=== PATIENT | female | born 1970 | race Caucasian/White ===

== ENCOUNTER 2024-10-29 00:56 | Day surgery (SDC) | payer OTHER, SELFPAY ==
[2024-10-21 11:50] VITALS: BMI 26.5
--- NOTE | 2024-10-21 12:05 | PC.NURSE ---
Report to the Outpatient Waiting Room, entrance under the green pavilion located off [facility], at time _0945_ on date _53-17-2227_. Planned Procedure Time: _1145_.? Time changes happen often and if your time is changed the preop area will call you the afternoon before. - You and your visitor will be asked to self-screen and do not enter if you have any COVID symptoms. Please call surgeon if you need to reschedule. - A mask is optional within the hospital at this time. Patients may have clear liquids (water, carbonated beverages, clear teas, apple juice) until 345am with a maximum of 20 ounces. Nothing to drink after 345am. - No food from midnight until time of surgery and no smoking, or chewing tobacco (or any form of nicotine). No chewing gum, candy or mints. Take only the following medications with a SIP of water on the morning of surgery: __Amlodipine and Gabapentin___ DO NOT STOP ANY OF YOUR OTHER PRESCRIPTION MEDICATIONS PRIOR TO SURGERY EXCEPT THE FOLLOWING Hold all vitamins and supplements for 3 days per anesthesiologist. Medications to discontinue per physician Date to take last dose Please no make-up, nail japanese, hairspray, perfume, deodorant, or body powder the day of surgery.? No jewelry (including any body piercings) or valuables the day of surgery, leave them at home.? Please take a shower or bath the night before, or the morning of, surgery with an antibacterial soap.? Wear comfortable, loose fitting clothing.? - Jewelry must be removed prior to entering the operating room.? Rings and piercings that are not removed may be cut off. - The hospital will not accept responsibility for valuables.? - Please leave all valuables, including medications, at home the day of surgery. If you are going home after surgery, a licensed dump truck driver must drive you home.? - NO public transportation without another adult if you receive anesthesia. - We recommend that an adult stay with you for 24 hours following discharge. - We also recommend that you do not drive, make important decision, drink alcoholic beverages, or take any drugs that were not prescribed by your health care provider for at least 24 hours after your discharge time. Follow any additional instructions given to you from your surgeon. Telephone instructions given to __Tracey___and asked if any additional questions and then verbalized understanding. Patient advised to call surgeon office or pre surgery nurse liaison [phone] if any additional questions.
--- OUTSIDE RECORDS SUMMARY | 2024-10-27 14:56 | XMS_ITS | Encounter Summary ---
Author Organization [facility] Healthcare Address [address] [place] [address] Care Team Providers Care Mechanical Maintenance Technician Name Role Phone Dipika Prakash MD Unavailable Merly Oro MD Primary Care Provide r Philippe Lee MD Unavailable Vanesa Forman MD Unavailable Indra Acosta MD Unavailable [phone] Reason for Referral * Diagnostic Imaging (Routine) - Authorized Specialty Diagnoses / Procedures Referred By Contac t Referred To Contact Diagnoses Spondylosis of lumbar region without myelopathy or radiculopathy Procedures Imaging Lumbar/Sacral Facet Medial Branch Block Bilateral (48695) Vance Yee NP [id number] [place] [address] [address] [place] [address] Phone: tel: fax: [facility] [address] [place] [address] Phone: tel: fax: Referral ID Status Reason Start Date Expiration Date V isits Requested Visits Authorized [id number] Authorized 10/27/2024 11/26/2025 1 1 Reason for Visit * Reason Comments Follow-up Patient is here for follow up after MBB #1 which offered 80% relief. 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 Encounter Details Date Type Department Care Team (Latest Contact Info) Description 10/27/2024 2:56 PM CDT - 10/27/2024 11:59 PM CDT Hospital Encounter [facility] [address] [place] [address] Vance Yee DRUM BARKER OPERATOR [address] [place] [address] Degeneration of intervertebral disc of lumbar region with discogenic back pain (Primary Dx); Spondylosis of lumbar region without myelopathy or radiculopathy; Rheumatoid arthritis, involving unspecified site, unspecified whether rheumatoid factor present (HCC) Discharge Disposition: Discharge to home or self care Social History Tobacco Use Types Packs/Day Years Used Date Smoking Tobacco: Never Passive Smoke Exposure: Never Smokeless Tobacco: Never Alcohol Use Standard Drinks/Week Comments No 0 (1 standard drink = 0.6 oz pur e alcohol) AUDIT-C Answer Date Recorded Q1: How often do you have a drink containing alc ohol? Never 05/03/2023 Average Number of Drinks Not on file 024 Frequency of Binge Drinking Not on file 04/12 PHQ-2 Answer Date Recorded PHQ-2 Total Score (If total score is 3 or more points, staff should administer the PHQ-9) 0 10/15/2024 Personal Safety Answer Date Recorded Have you ever been in or are you currently in a harmful physical or emotional relationship or is someone making you feel afraid or unsafe? 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 file Not on file Not on file documented as of this encounter Last Filed Vital Signs Vital Sign Reading Time Taken Comments Blood Pressure 149/86 10/27/2024 3:02 PM CDT Pulse 77 10/27/2024 3:02 PM CDT Temperature - - Respiratory Rate 16 10/27/2024 3:02 PM CDT Oxygen Saturation 100% 10/27/2024 3:02 PM CDT Inhaled Oxygen Concentration - - Weight - - Height - - Body Mass Index - - documented in this encounter Discharge Instructions * Discharge Instructions* Wanda Hernandez RN - 10/27/2024 4:03 PM CDT General information about procedures 1- If you are diabetic, check your blood sugar prior to your appointment. If it is 250 or > yourinjection will need to be rescheduled. 2- If you are on an antibiotic, the injection cannot be performed and will need to be rescheduled. 3- If you are on a blood thinner, we will need to send a letter to the prescriber in order to get permission to stop the medication. (This applies to most injections, not all, please check with your nurse) 4- Some injections require a otr van cdl truck driver, please check with your nurse. Insurance information for scheduled procedures: The insurance referral department will get any necessary authorizations for your upcoming procedure. They will not contact you unless it is DENIED. If the insurance approves the procedure or No AUTH is required that is not a guarantee of payment and it is subject to medical necessity. It is your responsibility to contact your insurance and check your benefits. If you have any questions, please feel free to contact the office.Diagnostic Medial Branch Block Pre-Procedure A diagnostic medial branch block is a test to find the cause of your neck and back pain. During thetest, your doctor will inject a numbing medication around the nerve that supplies your facet joints. These are the joints in your spine that allow you to bend and twist your neck and back. You should start to notice pain relief over the next 15 minutes or so. This will likely only last for the next few hours. It is DIAGNOSTIC and important for us to know. The procedure takes 3-5 minutes to perform. Insurance requires this block to be performed twice, if you get good relief then we can move forward with the ablation (that would hopefully result in longer lasting relief). To get an approval by insurance for the procedures, you must have a follow up appointment in between proceduresto document relief. If you are going to physical therapy continue to do so, you have no restrictions on your activity. Let us know: If you take a blood thinner (some of these procedures require you to stop it), if you are sick, on antibiotics or running a fever. documented in this encounter Medications at Time of Discharge ascorbic acid (VITAMIN C) 500 mg tablet,chewable Take one tablet twice daily 60 tablet/chew tab 01/15/2019 calcium carbonate-vitami n D3 (CALCIUM 500 + D) 500 mg(1,250mg) -400 unit tablet OTC 30 0 04/02/2016 estradiol-noreth indrone (Mimvey) 1-0.5 mg per tabletIndication s:Menopausal symptoms Take 1 tablet by mouth daily 84 tablet 4 10/18/2023 golimumab (SIMPONI ARIA) 12.5 mg/mL solutionIndicati ons:Rheumatoid Arthritis Infuse 2 mg/kg into a venous catheter multivitamin capsule take 1 capsule by oral route every day 0 03/26/2014 potassium chloride ER 20 mEq CR tablet Take 1 tablet (20 mEq total) by mouth 2 (two) times a day 180 tablet 1 10/15/2024 sertraline (ZOLOFT) 50 mg tablet Take 2 tablets (100 mg total) by mouth daily 12/30/2020 gabapentin (NEURONTIN) 300 mg capsuleIndicatio ns:Fibromyalgia Take 1 tab p.o. daily x3 days. Then take 1 tab p.o. b.i.d. daily x3 days. Finally take 1 tab p.o. t.i.d. thereafter 90 capsule 1 09/02/2024 5 documented as of this encounter Discharge Disposition Disposition Code Departure Means Destination Discharge to home or self care documented in this encounter Progress Notes * Vance Yee NP - 10/27/2024 3:00 PM CDT Patient Name: Xiomara Rojas : 1970 Today's Date: 10/28/2024 PCP: Merly Oro MD Referring: Philippe Lee* Chief Complaint Patient presents with Follow-up Patient is here for follow up after MBB #1 which offered 80% relief. 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 HPI Patient returned complaints of ongoing chronic lower back pain. Pain described as achy and sharp which is exacerbated with simple activities of daily living such as housework. Currently rating pain 6on 10 scale. Pain is primarily axial. Denying motor weakness into lower extremities. does endorse lower extremity achiness bilaterally. Recent bilateral medial branch block diagnostic injection series 1 provided patient with [id number] improvement with her symptomatology during the life with the anesthetic. Improved mobility was noted as well. She continues with the gabapentin t.i.d. with some benefit. Denies side effects. Inquires about increasing dose to improve effectiveness. Allergies Allergen Reactions Erythromycin Nausea & Vomiting Past Medical History: Diagnosis Date Anxiety Headache Hypertension 2015 Insomnia PONV (postoperative nausea and vomiting) RA (rheumatoid arthritis) Past Surgical History: Procedure Laterality Date CHOLECYSTECTOMY 2018 DILATION AND CURETTAGE OF UTERUS 1996 for miscarriage ENDOMETRIAL ABLATION W/ MAYLIN 2010 ROTATOR CUFF REPAIR Right 2019 SALPINGECTOMY 2016 laparoscopic bilateral salpingectomy for sterilization Social History Tobacco Use Smoking status: Never Passive exposure: Never Smokeless tobacco: Never Substance and Sexual Activity Drug use: Yes Types: Marijuana Comment: cbd edibles Sexual activity: Yes Partners: Male control/protection: Female Sterilization Alcohol Use: Not At Risk (05/03/2023) AUDIT-C Frequency of Alcohol Consumption: Never Average Number of Drinks: Not on file Frequency of Binge Drinking: Not on file Family History Problem Relation Age of Onset Hypertension Mother Osteoporosis Mother Asthma Daughter Osteoporosis Maternal Grandmother Seizures Niece Brain cancer Maternal Grandfather Skin cancer Maternal Grandfather Hypertension Father Hypertension Sister Ovarian cancer Father's Sister 77 HOME MEDICATIONS: ascorbic acid (VITAMIN C) 500 mg tablet,chewable calcium carbonate-vitamin D3 (CALCIUM 500 + D) 500 mg(1,250mg) -400 unit tablet estradiol-norethindrone (Mimvey) 1-0.5 mg per tablet golimumab (SIMPONI ARIA) 12.5 mg/mL solution multivitamin capsule potassium chloride ER 20 mEq CR tablet sertraline (ZOLOFT) 50 mg tablet gabapentin (NEURONTIN) 300 mg capsule cholecalciferol (VITAMIN D-3) 2000 unit capsule gabapentin (NEURONTIN) 300 mg capsule Review of Systems Review of Systems Constitutional: Negative. HENT: Negative for congestion, ear pain, sinus pressure, sinus pain and sore throat. Eyes: Negative for pain and visual disturbance. Respiratory: Negative for cough, chest tightness, shortness of breath and wheezing. Cardiovascular: Negative for chest pain, palpitations and leg swelling. Gastrointestinal: Negative for abdominal pain, blood in stool, constipation, diarrhea, nausea and vomiting. Endocrine: Negative for cold intolerance, heat intolerance, polydipsia, polyphagia and polyuria. Genitourinary: Negative for difficulty urinating, dysuria, frequency, hematuria and pelvic pain. Skin: Negative. Neurological: Negative for dizziness, syncope, weakness, light-headedness and headaches. Hematological: Negative. Psychiatric/Behavioral: Negative. Physical Exam Vitals: 10/27/24 1502 BP: 149/86 Pulse: 77 Resp: 16 SpO2: 100% There is no height or weight on file to calculate BMI. Physical Exam Vitals and nursing note reviewed. Constitutional: General: She is not in acute distress. Appearance: Normal appearance. She is well-developed. She is not diaphoretic. HENT: Head: Normocephalic and atraumatic. Eyes: Conjunctiva/sclera: Conjunctivae normal. Musculoskeletal: General: No tenderness or deformity. Right lower leg: No edema. Left lower leg: No edema. Skin: General: Skin is warm and dry. Neurological: General: No focal deficit present. Mental Status: She is alert and oriented to person, place, and time. Sensory: No sensory deficit. Motor: No weakness or abnormal muscle tone. Coordination: Coordination normal. Deep Tendon Reflexes: Reflexes normal. Psychiatric: Mood and Affect: Mood normal. Behavior: Behavior normal. Thought Content: Thought content normal. Judgment: Judgment normal. Review of Data: Clinical evaluation forms were reviewed including the PEG Scale Assessing Pain Intensity and Interference with score of n/a Current Opioid Misuse Measure (COMM) reviewed with score of n/a (> or equal to 9 is higher risk of opioid misuse) [place] and [place] Prescription Drug Monitoring Reviewed and was consistent with office guidelines and policies. Most recent Urine Toxicology findings reviewed. 10/27/2024 3:00 PM MODIFIED OSWESTRY LOW BACK PAIN QUESTIONNAIRE Section 1 - Pain Intensity 3 - Pain medication provides me with moderate relief from pain Section 2 - Personal Care (e.g., washing, dressing) 1 - I can take care of myself normally, but it increases my pain Section 3 - Lifting 3 - Pain prevents me from lifting heavy weights off the floor, but I can managelight to medium weights if they are conveniently positioned Section 4 - Walking 3 - Pain prevents me from walking more than 1/4 mile Section 5 - Sitting 2 - Pain prevents me from sitting for more than 1 hour Section 6 - Standing 1 - I can stand as long as I want but it increases my pain Section 7 - Sleeping 1 - I can sleep well only using pain medication Section 8 - Social Life 2 - Pain prevents me from participating in more energetic activities (e.g.,sports, dancing) Section 9 - Traveling 1 - I can travel anywhere, but it increases my pain Section 10 - Employment/Homemaking 2 - I can perform most of my homemaking/job duties, but pain prevents me from performing more physically stressful activities (e.g., lifting, vacuuming) Modified Oswestry Low Back Pain Score 19 Percentage 38 Assessment Problem List Neuro Degeneration of intervertebral disc of lumbar region with discogenic back pain - Primary Spondylosis of lumbar region without myelopathy or radiculopathy Relevant Orders Imaging Lumbar/Sacral Facet Medial Branch Block Bilateral (29231) Plan Pre-hypertension/Hypertension: The patient has been informed that they may have pre-hypertension orhypertension based on a blood pressure reading in the office today. I recommend that the patient call their primary care provider or a physician of their choice this week to arrange follow up for further evaluation of possible pre-hypertension or hypertension. I have also recommended that they try weight loss and exercise for management. Patient had favorable response to recent diagnostic medial branch block injection series 1 and we will proceed with her 2nd set of bilateral diagnostic medial branch block injections to L3, L4, L5. If she has a favorable outcome we will pursue radiofrequency ablation. With regards to gabapentin she is tolerating it well and we will increase to 2 tablets taken b.i.d.. Follow-up post injection therapy. This dictation was performed using M*Modal dictation. There may be some bottoming room supervisor variances which are not appreciated or corrected in this note. documented in this encounter Plan of Treatment Scheduled Orders Name Type Priority Associated Diagnoses Orde r Schedule Imaging Lumbar/Sacral Facet Medial Branch Block Bilateral (37451) Imaging Schedule Routine, Read Routine (OP Routine) Spondylosis of lumbar region without myelopathy or radiculopathy Expected: 10/27/2024, Expires: 10/27/2025 documented as of this encounter Visit Diagnoses Diagnosis Degeneration of intervertebral disc of lumbar region with discogenic back pain- Primary Spondylosis of lumbar region without myelopathy or radiculopathy Rheumatoid arthritis, involving unspecified site, unspecified whether rheumatoid factor present (HCC) documented in this encounter Care Teams Mechanical Maintenance Technician Relationship Specialty Start Date End Date Merly Oro MD [address] [place] [address] PCP - General Family Medicine 09/02/24 Dipika Prakash MD [address] [facility] [address] [place] [address] Consulting Physician Rheumatology 04/15/23 [place] [address] [address] [facility] [address] [place] [address] Consulting Physician Pain Management 10/15/24 Vanesa Forman MD [address] [place] [address] Gas Cutter Obstetrics and Gynecology 10/15/24 Indra Acosta MD [address] [facility] [address] [place] [address] Surgeon Orthopedic Surgery 10/15/24 documented as of this encounter
--- OUTSIDE RECORDS SUMMARY | 2024-10-29 00:58 | XMS_ITS | Patient Health Record ---
Author Organization [facility] maty Address [address] [facility] [place] [address] Care Team Providers Care Dry [employer] Worker Name Role Phone Mari POMPA, [facility] Primary Care Provide r Lizbeth Dipika Prakash Unavailable [phone] Allergies Allergen (clinical drug ingredient) Drug/Non Drug Allergy documented on EMR Reaction Allergy Type Onset Date Status erythromycin Erythromycin Unknown Drug Allergy 08/25/2019 Active Results Component Value Reference Range Notes eGFR Reviewed date:06/10/2024 09:30:17 PM Interpretation: Performing Lab:[facility] , [address] [facility] [address] Notes/Report: eGFR >90 >=60 mL/min/1.73 m2 Interpretive Data Reference Interval Normal >/= 90 mL/min/1.73m2 Mildly decreased* 60 - 89 mL/min/1.73m2 Mildly to moderately decreased 45 - 59 mL/min/1.73m2 Moderately to severely decreased 30 - 44 mL/min/1.73m2 Severely decreased 15 - 29 mL/min/1.73m2 Kidney Failure < 15 mL/min/1.73m2 *Relative to young adult level Estimated glomerular filtration rate is determined by the 2020 CKD-EPI equation recommended by the National Kidney Foundation (A Unifying Approach to GFR Estimation: Recommendations of the NKF-ASK Task Force on Reassessing the Inclusion of Race in Diagnosing Kidney Disease, JASN 2020). The CKD-EPI equation should not be used for patients with unstable renal function and has not been validated in children and those over 70. Current interpretive data was last reviewed 2020. Differential Automated Reviewed date:06/10/2024 09:30:17 PM Interpretation: Performing Lab:[facility] , [address] [facility] [place] [address] Notes/Report: Neut Abs 4.17 1.50-6.50 K/cumm ImmGran Abs 0.02 0.00-0.10 K/cumm Lymphocyte Abs 2.81 0.80-3.30 K/cumm Sussex Abs 0.56 0.20-0.80 K/cumm Eos Abs 0.10 0.00-0.50 K/cumm Baso Abs 0.03 0.00-0.10 K/cumm Neut Pct 54.2 Interpretive Data Percent cell count reference ranges are not reported, since discordance with absolute values may lead to misinterpretation of CBC data. Current Interpretive Data was last revised on 2017. ImmGran Pct 0.3 Interpretive Data Percent cell count reference ranges are not reported, since discordance with absolute values may lead to misinterpretation of CBC data. Current Interpretive Data was last revised on 2017. Lymph Pct 36.5 Interpretive Data Percent cell count reference ranges are not reported, since discordance with absolute values may lead to misinterpretation of CBC data. Current Interpretive Data was last revised on 2017. Sussex Pct 7.3 Interpretive Data Percent cell count reference ranges are not reported, since discordance with absolute values may lead to misinterpretation of CBC data. Current Interpretive Data was last revised on 2017. Eos Pct 1.3 Interpretive Data Percent cell count reference ranges are not reported, since discordance with absolute values may lead to misinterpretation of CBC data. Current Interpretive Data was last revised on 2017. Baso Pct 0.4 Interpretive Data Percent cell count reference ranges are not reported, since discordance with absolute values may lead to misinterpretation of CBC data. Current Interpretive Data was last revised on 2017. eGFR Reviewed date:03/20/2024 07:39:09 PM Interpretation: Performing Lab:[facility] , [address] [facility] [place] [address] Notes/Report: eGFR 90 >=60 mL/min/1.73 m2 Interpretive Data Reference Interval Normal >/= 90 mL/min/1.73m2 Mildly decreased* 60 - 89 mL/min/1.73m2 Mildly to moderately decreased 45 - 59 mL/min/1.73m2 Moderately to severely decreased 30 - 44 mL/min/1.73m2 Severely decreased 15 - 29 mL/min/1.73m2 Kidney Failure < 15 mL/min/1.73m2 *Relative to young adult level Estimated glomerular filtration rate is determined by the 2020 CKD-EPI equation recommended by the National Kidney Foundation (A Unifying Approach to GFR Estimation: Recommendations of the NKF-ASK Task Force on Reassessing the Inclusion of Race in Diagnosing Kidney Disease, JASN 2020). The CKD-EPI equation should not be used for patients with unstable renal function and has not been validated in children and those over 70. Current interpretive data was last reviewed 2020. Differential Automated Reviewed date:03/20/2024 07:39:02 PM Interpretation: Performing Lab:[facility] , [address] [place] [address]. [facility] [address] Notes/Report: Neut Abs 3.7 1.5-6.5 K/cumm ImmGran Abs 0.0 0.0-0.1 K/cumm Lymphocyte Abs 2.4 0.8-3.3 K/cumm Sussex Abs 0.4 0.2-0.8 K/cumm Eos Abs 0.0 0.0-0.5 K/cumm Baso Abs 0.1 0.0-0.1 K/cumm Neut Pct 56.3 Interpretive Data Percent cell count reference ranges are not reported, since discordance with absolute values may lead to misinterpretation of CBC data. Current Interpretive Data was last revised on 2017. ImmGran Pct 0.5 Interpretive Data Percent cell count reference ranges are not reported, since discordance with absolute values may lead to misinterpretation of CBC data. Current Interpretive Data was last revised on 2017. Lymph Pct 35.5 Interpretive Data Percent cell count reference ranges are not reported, since discordance with absolute values may lead to misinterpretation of CBC data. Current Interpretive Data was last revised on 2017. Sussex Pct 6.3 Interpretive Data Percent cell count reference ranges are not reported, since discordance with absolute values may lead to misinterpretation of CBC data. Current Interpretive Data was last revised on 2017. Eos Pct 0.6 Interpretive Data Percent cell count reference ranges are not reported, since discordance with absolute values may lead to misinterpretation of CBC data. Current Interpretive Data was last revised on 2017. Baso Pct 0.8 Interpretive Data Percent cell count reference ranges are not reported, since discordance with absolute values may lead to misinterpretation of CBC data. Current Interpretive Data was last revised on 2017. SSB Ab Reviewed date:06/11/2024 12:56:49 PM Interpretation: Performing Lab:[facility] , [address] [place] [address]. [facility] [address] Notes/Report: SS B Antibody <0.2 <=0.9 Ab Index Interpretive Data Negative: < 1.0 Ab Index Positive: > or = 1.0 Ab Index Current interpretive data was last revised on 2016. SSA Ab Reviewed date:06/11/2024 12:56:49 PM Interpretation: Performing Lab:[facility] , [address] [place] [address]. [facility] [address] Notes/Report: SS A Antibody <0.2 <=0.9 Ab Index Interpretive Data Negative: < 1.0 Ab Index Positive: > or = 1.0 Ab Index Current interpretive data was last revised on 2016. Sed Rate Reviewed date:06/10/2024 09:30:17 PM Interpretation: Performing Lab:[facility] , [address] [place] [address]. [facility] [address] Notes/Report: ESR 10 1-30 mm/hr Rheumatoid Factor Reviewed date:06/10/2024 09:30:17 PM Interpretation: Performing Lab:[facility] , [address] [place] [address]. [facility] [address] Notes/Report: RF, Butch <10 <=15 IUnits/mL Creatine Kinase Reviewed date:06/10/2024 09:30:16 PM Interpretation: Performing Lab:[facility] , [address] [place] [address]. [facility] [address] Notes/Report: Total CK 68 30-200 Units/L Comprehensive metabolic pane l (CMP) Reviewed date:06/10/2024 09:30:16 PM Interpretation: Performing Lab:[facility] , [address] [facility]. [place] [address] Notes/Report: Sodium 141 135-145 mmol/L Plasma Potassium 3.7 3.3-4.9 mmol/L Chloride 106 97-110 mmol/L Total CO2 24 22-32 mmol/L Anion Gap 11 2-15 mmol/L BUN 15 6-25 mg/dL Creatinine 0.71 0.60-1.10 mg/dL Glucose 89 70-199 mg/dL Interpretive Data Fasting glucose >/= 126 mg/dl is diagnostic for diabetes. Fasting is defined as no caloric intake for at least 8 hours. Fasting glucose between 100 mg/dl to 125 mg/dl is diagnostic of prediabetes. In a patient with classic symptoms of hyperglycemia or hyperglycemic crisis, a random glucose >/= 200 mg/dl is diagnostic for diabetes. In the absence of unequivocal hyperglycemia, results should be confirmed by repeat testing. The classification and Diagnosis of Diabetes Diabetes Care 2021; 46: S19-S40. Current interpretive data was last revised 2022. Total Calcium 8.8 8.5-10.3 mg/dL Total Bilirubin 0.4 0.1-1.2 mg/dL Plasma Total Protein 6.8 6.5-8.5 g/dL Albumin 3.9 3.5-5.0 g/dL Alkaline Phosphatase 89 40-130 Units/L ALT 16 7-45 Units/L AST 24 10-45 Units/L CBC w auto diff Reviewed date:06/10/2024 09:30:16 PM Interpretation: Performing Lab:[facility] , [address] [place] [address]. [place] [address] Notes/Report: WBC 7.69 3.80-9.90 K/cumm Hgb 13.6 11.9-15.5 g/dL Hct 40.9 35.6-45.5 % Platelet Ct 279 150-400 K/cumm MPV 9.8 9.1-12.3 fL RBC 4.41 3.90-5.20 M/cumm MCV 92.7 81.3-96.4 fL MCH 30.8 27.1-33.3 pg MCHC 33.3 32.3-35.7 g/dL RDW CV 12.0 11.1-14.9 % RDW SD 41.3 35.7-48.1 fL NRBC Abs Auto 0.00 0.00-0.01 K/cumm C Reactive Protein Reviewed date:06/10/2024 09:30:16 PM Interpretation: Performing Lab:[facility] , [address] [place] [address] Notes/Report: C-Reactive Protein <3.0 <=10.0 mg/L NOE reflex titer pattern ARMOND + dsDNA Reviewed date:06/11/2024 12:56:35 PM Interpretation:Lab Result Generalized Performing Lab:[facility] , [address] [place] [address]. [facility] [address] Notes/Report: NOE, Qual Negative Interpretive Data Normal range for NOE Qualitative Antibody = Negative. 1. NOE is performed using indirect immunofluorescence against HEp-2 cells 2. NOE titers are performed on all positive qualitative results. 3. A significantly positive NOE result is defined as a positive nuclear fluorescence at a titer of 1:80 or greater. 4. 15% of normal people above age 65 have significantly positive NOE results. 5% or less of normal people age 65 or under have significantly positive NOE results. Current interpretive data was last revised on 2019. Testing performed by: [facility], [address] [place] [address]., [address] Aldolase Reviewed date:06/10/2024 09:30:16 PM Interpretation: Performing Lab:[facility] , [address] [place] [address]. [facility] [address] Notes/Report: Aldolase 3.6 0.1-8.0 Units/L Testing performed by: [facility], [address] [place]., [address] Comprehensive metabolic pane l (CMP) Reviewed date:03/20/2024 07:41:28 PM Interpretation: Performing Lab:[facility] , [address] [place] [address] Notes/Report: Sodium 143 135-145 mmol/L Plasma Potassium 3.7 3.3-4.9 mmol/L Chloride 108 97-110 mmol/L Total CO2 25 22-32 mmol/L Anion Gap 10 2-15 mmol/L BUN 14 6-25 mg/dL Creatinine 0.78 0.60-1.10 mg/dL Glucose 81 70-199 mg/dL Interpretive Data Fasting glucose >/= 126 mg/dl is diagnostic for diabetes. Fasting is defined as no caloric intake for at least 8 hours. Fasting glucose between 100 mg/dl to 125 mg/dl is diagnostic of prediabetes. In a patient with classic symptoms of hyperglycemia or hyperglycemic crisis, a random glucose >/= 200 mg/dl is diagnostic for diabetes. In the absence of unequivocal hyperglycemia, results should be confirmed by repeat testing. The classification and Diagnosis of Diabetes Diabetes Care 2021; 46: S19-S40. Current interpretive data was last revised 2022. Total Calcium 9.6 8.5-10.3 mg/dL Total Bilirubin 0.3 0.1-1.2 mg/dL Plasma Total Protein 7.0 6.5-8.5 g/dL Albumin 4.3 3.5-5.0 g/dL Alkaline Phosphatase 93 40-130 Units/L ALT 15 7-45 Units/L AST 21 10-45 Units/L CBC w auto diff Reviewed date:03/20/2024 07:41:19 PM Interpretation: Performing Lab:[facility] , [address] [place] [address]. [place] [address] Notes/Report: WBC 6.6 3.8-9.9 K/cumm Hgb 13.9 11.9-15.5 g/dL Hct 43.1 35.6-45.5 % Platelet Ct 305 150-400 K/cumm MPV 9.9 9.1-12.3 fL RBC 4.60 3.90-5.20 M/cumm MCV 93.7 81.3-96.4 fL MCH 30.2 27.1-33.3 pg MCHC 32.3 32.3-35.7 g/dL RDW CV 12.1 11.1-14.9 % RDW SD 41.6 35.7-48.1 fL NRBC Abs Auto 0.00 0.00-0.01 K/cumm QTB Gold Reviewed date:08/16/2024 01:20:13 PM Interpretation: Performing Lab:[facility] , [address] [place] [address]. [place] [address] Notes/Report: QuantiFERON TB Gold Negative Negative No interferon-gamma response to M. tuberculosis antigens was detected. Latent infection with M. tuberculosis is unlikely. A single negative result does not exclude infection with M. tuberculosis. In patients at high risk for M.tuberculosis infection, a second test should be considered in accordance with the 2017 ATS/IDSA/CDC Clinical Practice Guidelines for Diagnosis of Tuberculosis in Adults and Children [Bryon HANSEN et. al. Clin. Infect. Dis. 2017;64(2):111-115]. The reference range for the 'TB1 Ag minus Nil Result' and 'TB2 Ag minus Nil Result' is an Interferon-gamma level <0.35 IU/mL. TB-Nil 0.00 TB2-Nil 0.00 Mitogen-Nil 9.98 NIL 0.02 Test Performed by: [facility] [address] [place], [place] [id number] Service Center Specialist: Young De Anda Ph.D.; CLIA# [id number] Reason For Referral Reason 06.29.2024 [facility] authorized 13 visits 09.11.2024 to 09.11.2025 Diagnosis 1 Rheumatoid arthritis without rheumatoid factor, multiple sites (M06.09) Referral Organization [facility] tony Referring Provider First Name Dipika Referring Provider Last Name Dwain Referring Provider Speciality Rheumatolo gy Referred Organization [facility] tony Referred Provider Dipika Prakash Referred Address [address],[place], [place],[address], Referred Provider Specialty Rheumatology Procedure 1 ABATACEPT INJECTION (J0129) Referral Priority Routine Medications Medication SIG (Take, Route, Frequency, Duration) Notes Start Date End Date Status hydroCHLOROthiazide 12.5 MG take 1 tablet (12.5 mg) by oral route once daily Oral 1 Active Kandy Allergy 180 MG Oral Active Women's Daily Formula take 1 by oral route once oral 1 *Reorder from VasSol for eRx and Interaction Alerts* Active predniSONE 5 MG (21) as directed Orally daily 12/17/2022 Active Sertraline HCl 100 MG TAKE 1 TABLET BY MOUTH EVERY DAY; Duration: 30 Active Potassium Chloride ER 20 MEQ take 1 tablet (20 meq) by oral route once daily with food Oral 1; Duration: 30 days Active Vitamin D3 Super Strength 50 MCG (1999 UT) take 1 tablet by oral route once Oral 1 Active Calcium + Vitamin D3 600-5 MG-MCG take 1 by oral route once Oral 1 Active methylPREDNISolone 4 MG as directed Orally daily; Duration: 6 day(s) 09/23/2024 Active SUMAtriptan Succinate 50 MG prn Oral Active clonazePAM 0.5 MG take 1 tablet at bedtime Oral Active Nabumetone 750 MG TAKE 1 TABLET BY MOUTH TWICE A DAY FOR 30 DAYS; Duration: 30 Active amLODIPine Besylate 5 MG take 1 tablet ( 5 mg) by oral route once daily Oral 1 Active Pregabalin 50 MG 1 capsule Orally Once a day 03/18/2024 Active Biotin 49208 MCG take 1 by oral route once Oral 1 Active Pregabalin 75 MG 1 capsule Orally twice a day; Duration: 30 days 06/10/2024 Active Vitamin C 500 mg take 1 tablet by oral route once Oral 1 Active Diclofenac Sodium 75 MG TAKE 1 TABLET BY MOUTH TWICE A DAY; Duration: 30 Active Problems Problem Type SNOMED Code ICD Code Onset Dates Problem Status W/U Status Risk Notes Problem Rheumatoid arthritis (15526964) Rheumatoid arthritis without rheumatoid factor, unspecified site (M06.00) Active confirmed Problem Rheumatoid arthritis (71341771) Rheumatoid arthritis without rheumatoid factor, multiple sites (M06.09) Active confirmed Problem Rheumatoid arthritis (48634979) Rheumatoid arthritis of multiple sites with negative rheumatoid factor (M06.09) Active confirmed Vital Signs Heart Rate 67 /min 10/13/2024 Temperature 97.2 degrees Fahrenheit 10/13/2024 Height-cm 157.48 cm 10/13/2024 Blood pressure diastolic 81 mm Hg 10/13/2024 Weight-kg 66.68 kg 10/13/2024 Height 62 in 10/13/2024 Blood pressure systolic 140 mm Hg 10/13/2024 Weight 147 lbs 10/13/2024 BMI 26.88 kg/m2 10/13/2024 Encounters Encounter Location Date Provider Diagnosis [facility] [address] [facility] [address] [place] [address] 11/27/2023 Dipika Prakash Rheumatoid arthritis without rheumatoid factor, multiple sites M06.09 [facility] [address] [facility] [address] [place] [address] 12/25/2023 Dipika Prakash Rheumatoid arthritis without rheumatoid factor, multiple sites M06.09 [facility] [address] [place] [address] 01/22/2024 Dipika Du Rheumatoid arthritis without rheumatoid factor, multiple sites M06.09 [facility] [address] [place] [address] 02/19/2024 Dipika Du Rheumatoid arthritis without rheumatoid factor, multiple sites M06.09 [facility] [address] [place] [address] 02/19/2024 Dipika Du Rheumatoid arthritis without rheumatoid factor, multiple sites M06.09 ; High risk medication use Z79.899 ; Pain in right foot M79.671 and Pain in left foot M79.672 [facility] [address] [place] [address] 03/18/2024 Dipika Du Rheumatoid arthritis without rheumatoid factor, multiple sites M06.09 [facility] [address] [place] [address] 04/15/2024 Dipika Du Rheumatoid arthritis without rheumatoid factor, multiple sites M06.09 [facility] [address] [place] [address] 05/13/2024 Dipika Du Rheumatoid arthritis without rheumatoid factor, multiple sites M06.09 [facility] [address] [place] [address] 05/13/2024 Dipika Du Rheumatoid arthritis without rheumatoid factor, multiple sites M06.09 ; High risk medication use Z79.899 ; Pain in right foot M79.671 and Pain in left foot M79.672 [facility] [address] [place] [address] 06/10/2024 Dipika Du Rheumatoid arthritis without rheumatoid factor, multiple sites M06.09 [facility] [address] [place] [address] 06/10/2024 Dipika Du Rheumatoid arthritis without rheumatoid factor, multiple sites M06.09 ; High risk medication use Z79.899 ; Pain in right foot M79.671 and Pain in left foot M79.672 [facility] [address] [place] [address] 07/15/2024 Dipika Du Rheumatoid arthritis without rheumatoid factor, multiple sites M06.09 [facility] [address] [place] [address] 08/12/2024 Dipika Dwain Rheumatoid arthritis without rheumatoid factor, multiple sites M06.09 [facility] [address] [place] [address] 09/14/2024 Dipika Dwain Rheumatoid arthritis without rheumatoid factor, multiple sites M06.09 [facility] [address] [place] [address] 10/13/2024 Dipika Prakash Rheumatoid arthritis without rheumatoid factor, multiple sites M06.09 [facility] [address] [place] [address] 11/11[facility] [address] [place] [address] 12/09/[facility] [address] [place] [address] 12/25/2023 [facility] [address] [place] [address] 01/20/2024 [facility] [address] [place] [address] 02/07/2024 [facility] [address] [place] [address] 02/19/2024 [facility] [address] [place] [address] 03/18/2024 [facility] [address] [place] [address] 03/18/2024 Dipika [facility] [address] [place] [address] 04/27/2024 [facility] [address] [place] [address] 05/13/2024 [facility] [address] [place] [address] 05/25/2024 [facility] [address] [place] [address] 07/03/2024 [facility] [address] [place] [address] 07/15/2024 [facility] [address] [place] [address] 07/27/2024 [facility] [address] [place] [address] 08/24/2024 [facility] [address] [place] [address] 09/14/2024 [facility] [address] [place] [address] 09/23/2024 [facility] [address] [place] [address] 09/23/2024 Dipika Du Assessments Encounter Date Diagnosis (ICD Code) Assessment Notes Treatment Notes Treatment Clinical Notes Section Notes 11/27/2023 Rheumatoid arthritis without rheumatoid factor, multiple sites (ICD-10 - M06.09) 12/25/2023 Rheumatoid arthritis without rheumatoid factor, multiple sites (ICD-10 - M06.09) 01/22/2024 Rheumatoid arthritis without rheumatoid factor, multiple sites (ICD-10 - M06.09) 02/19/2024 Rheumatoid arthritis without rheumatoid factor, multiple sites (ICD-10 - M06.09) orencia helping, will continue, also continue lyrica, steorids for flares 02/19/2024 Rheumatoid arthritis without rheumatoid factor, multiple sites (ICD-10 - M06.09) 03/18/2024 Rheumatoid arthritis without rheumatoid factor, multiple sites (ICD-10 - M06.09) 04/15/2024 Rheumatoid arthritis without rheumatoid factor, multiple sites (ICD-10 - M06.09) 05/13/2024 Rheumatoid arthritis without rheumatoid factor, multiple sites (ICD-10 - M06.09) 05/13/2024 Rheumatoid arthritis without rheumatoid factor, multiple sites (ICD-10 - M06.09) orencia helping, will continue, increase lyrica to 75mg qhs 06/10/2024 Rheumatoid arthritis without rheumatoid factor, multiple sites (ICD-10 - M06.09) 06/10/2024 Rheumatoid arthritis without rheumatoid factor, multiple sites (ICD-10 - M06.09) repeat serologies, increase lyrica to 75mg bid, continue orencia 07/15/2024 Rheumatoid arthritis without rheumatoid factor, multiple sites (ICD-10 - M06.09) 08/12/2024 Rheumatoid arthritis without rheumatoid factor, multiple sites (ICD-10 - M06.09) 09/14/2024 Rheumatoid arthritis without rheumatoid factor, multiple sites (ICD-10 - M06.09) 10/13/2024 Rheumatoid arthritis without rheumatoid factor, multiple sites (ICD-10 - M06.09) 06/10/2024 High risk medication use (ICD-10 - Z79.899) repeat serologies, increase lyrica to 75mg bid, continue orencia 02/19/2024 High risk medication use (ICD-10 - Z79.899) orencia helping, will continue, also continue lyrica, steorids for flares 05/13/2024 High risk medication use (ICD-10 - Z79.899) orencia helping, will continue, increase lyrica to 75mg qhs 06/10/2024 Pain in right foot (ICD-10 - M79.671) repeat serologies, increase lyrica to 75mg bid, continue orencia 05/13/2024 Pain in right foot (ICD-10 - M79.671) orencia helping, will continue, increase lyrica to 75mg qhs 02/19/2024 Pain in right foot (ICD-10 - M79.671) orencia helping, will continue, also continue lyrica, steorids for flares 02/19/2024 Pain in left foot (ICD-10 - M79.672) orencia helping, will continue, also continue lyrica, steorids for flares 05/13/2024 Pain in left foot (ICD-10 - M79.672) orencia helping, will continue, increase lyrica to 75mg qhs 06/10/2024 Pain in left foot (ICD-10 - M79.672) repeat serologies, increase lyrica to 75mg bid, continue orencia Plan Of Treatment Pending Test Test Name Order Date CBC With Differential/Platelet 3 CBC With Differential/Platelet 4 CMP - Comp. Metabolic Panel (14) 024 CMP - Comp. Metabolic Panel [phone] [employer] 09/03/2023 Next Appt Details Provider Name:Dipika Prakash, 11/10 09:00:00 AM, [address], [place], [address], Provider Name:Dipika Prakash, 12/08 09:00:00 AM, [address], [place], [address], Insurance Providers Payer Name Payer Address Payer Phone Subscriber Number Group Number Insured Name Patient Relationship to Insured Coverage Start Date Coverage End Date [employer] [address] [address] [place] [phone] [id number] Xiomara Rojas Self - patient is the insured [employer] [address] [place] [address] [id number] Xiomara Rojas Self - patient is the insured Medical (General) History Medical History History ICD Code Anxiety; Headache; Hypertension; Insomnia; Surgical History Surgery Date(Month/Year) endometrial ablation; 2019-08-25 Salpingectomy; 2019-08-25 D & C; 2019-08-25 cholecystectomy; 2019-08-25 rotator cuff repair; 2019-08-25
--- OUTSIDE RECORDS SUMMARY | 2024-10-29 00:58 | XMS_ITS | Encounter Summary ---
Author Organization [facility] Healthcare Address [address] [place] [address] Care Team Providers Care Staffing Associate Name Role Phone Dipika Prakash MD Unavailable Merly Oro MD Primary Care Provide r Philippe Lee MD Unavailable Vanesa Forman MD Unavailable Indra Acosta MD Unavailable [phone] Reason for Visit * Reason Onset Date Comments Medical Question/Miscellaneous 10/21/2024 Encounter Details Date Type Department Care Team (Late st Contact Info) Description 10/21/2024 Telephone [facility] Primary Care at [address] [address] Merly Oro MD [address] [place] [address] Medical Question/Miscellaneous Social History Tobacco Use Types Packs/Day Years [...] on file 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 Patient then asked for the message again regarding She should not be buying medications from a friend, if this patient provider relation is to move forward she needs to be honest She stated oh gosh, I just forgot It was my first visit and I just forgot to mention it. My last pcp stated I was always over weight so I don't know why she won't prescribe it and what was that about my BMI? Informed her per Dr. Gomez, that she did not qualify per her current BMI. * Telephone Encounter - Merly Oro MD - 10/23/2024 9:13 AM CDT She does not qualify based on her chart. 2. She should not be buying medications from a friend, if this patient provider relation is to move forward she needs to be honest. 3. I will not be prescribing wegovy. * Telephone Encounter - Isabel Andujar MA - 10/23/2024 9:09 AM CDT Patient stated she bought it from a friend it has never been prescribed by a provider of any sort previously. Patient then said, oh no am I in trouble, she's not going to prescribe it now is she? * Telephone Encounter - Merly Oro MD - 10/23/2024 9:04 AM CDT No I am not increasing the dose. We can discuss dose adjustment at the 3 month follow up. When she mentions different provider, is she referring to her previous pcp or is she getting it from a med spa? * Telephone Encounter - Isabel Andujar MA - 10/23/2024 8:[address] Oro, please review message and advise. * Telephone Encounter - Marilee Ruano - 10/23/2024 8:02 AM CDT Call Back Caller???s Concern: Patient returned call and stated that she is aware of the side effects. Patient has been on Wegovy for about 10 weeks with a different provider, she said she has lost 14 lbs. She was on a low dose and would like to have it increased if possible. Patient wants to Thank Dr Gomez for continuing her prescription. Does message need to be routed? Yes-Action Needed * Telephone Encounter - Isabel Andujar MA - 10/23/2024 7:43 AM CDT Attempted to contact Xiomara with no answer. LMOM to contact the office back. If Xiomara calls back, please relay message from Dr. Gomez and schedule patient for in office weight check in 3 months. * Telephone Encounter - Merly Oro MD - 10/22/2024 4:41 PM CDT Please be sure that the patient is aware of side effects/risks including thyroid cancer, pancreatitis, retinopathy, severe nausea, vomiting, diarrhea and constipation amongst other things then I can send the script but she should have a 3 month follow up for monitoring * Telephone Encounter - Isabel Andujar MA - 10/21/2024 11:[address] Oro, please review message and advise. * Telephone Encounter - Elizabeth Leary - 10/21/2024 11:00 AM CDT Medical Question/Miscellaneous Caller???s Concern: Patient was in on 10/15 as a new patient and forgot to say that she is on Wegovy,the lowest dose. She is asking if a refill could be sent to her pharmacy. She has lost 13 pounds sofar. When she was getting them before she did not have insurance so she's not sure what kind of coverage she has on it. [facility] Does message need to be routed? Yes-Action Needed documented in this encounter Plan of Treatment Not on file documented as of this encounter Visit Diagnoses Not on filedocumented in this encounter Care Teams Staffing Associate Relationship Specialty Start Date End Date Merly Oro MD [address] [place] [address] [place] [address] PCP - General Family Medicine 09/02/24 Dipika Prakash MD [address] [facility] [address] [place] [address] Consulting Physician Rheumatology 04/15/23 [place] [address] [facility] [address] [place] [address] Consulting Physician Pain Management 10/15/24 Vanesa Forman MD [address] [place] [address] Nuclear Physics Professor Obstetrics and Gynecology 10/15/24 Indra Acosta MD [address] [place] [facility] [address] [place] [address] Surgeon Orthopedic Surgery 10/15/24 documented as of this encounter
--- OUTSIDE RECORDS SUMMARY | 2024-10-29 00:58 | XMS_ITS | Clinical Summary ---
Author Organization [facility] Building A Address [address] [place] [address] Care Team Providers Care Land Clearer Name Role Phone Dipika Prakash MD Unavailable Merly Oro MD Primary Care Provide r Philippe Lee MD Unavailable Adelia Cerna MD Unavailable Indra Acosta MD Unavailable Allergies Active Allergy Reactions Criticality Noted Date Comments Erythromycin Nausea & Vomiting Low 07/11/2017 Medications multivitamin capsule take 1 capsule by oral route every day 0 03/26/19 15 Active calcium carbonate-vitam in D3 (CALCIUM 500 + D) 500 mg(1,250mg) -400 unit tablet OTC 30 0 04/02/19 17 Active ascorbic acid (VITAMIN C) 500 mg tablet,chewable Take one tablet twice daily 60 tablet/chew tab 01/16/20 19 Active cholecalciferol (VITAMIN D-3) 2000 unit capsule Take 1 capsule (2,000 Units total) by mouth daily 30 capsule 01/16/20 19 Active sertraline (ZOLOFT) 50 mg tablet Take 2 tablets (100 mg total) by mouth daily 12/31/19 21 Active golimumab (SIMPONI ARIA) 12.5 mg/mL solutionIndicat ions:Rheumatoid Arthritis Infuse 2 mg/kg into a venous catheter Active estradiol-noret hindrone (Mimvey) 1-0.5 mg per tabletIndicatio ns:Menopausal symptoms Take 1 tablet by mouth daily 84 tablet 4 10/18/19 24 Active potassium chloride ER 20 mEq CR tablet Take 1 tablet (20 mEq total) by mouth 2 (two) times a day 180 tablet 1 10/16/19 25 026 Active gabapentin (NEURONTIN) 300 mg capsule TID 90 capsule 3 10/29/19 25 Active amLODIPine (NORVASC) 5 mg tabletIndicatio ns:Essential hypertension Take 1 tablet (5 mg total) by mouth daily. 90 tablet 3 06/06/19 18 025 Discontinued(P atient Reported) clonazePAM (KlonoPIN) 0.5 mg tablet Take 1 tablet (0.5 mg total) by mouth nightly 025 Discontinued(P atient Reported) hydroCHLOROthia zide (HYDRODIURIL) 12.5 mg tablet Take 1 tablet (12.5 mg total) by mouth every morning 5 10/28/19 19 025 Discontinued(P atient Reported) POTASSIUM CHLORIDE ER 20 mEq CR tablet Take 1 tablet (20 mEq total) by mouth daily 5 11/08/19 19 025 Discontinued(R eorder) SUMAtriptan (IMITREX) 50 mg tablet 10/31/19 21 025 Discontinued(P atient Reported) nabumetone (RELAFEN) 750 mg tablet Take 1 tablet (750 mg total) by mouth 2 (two) times a day 025 Discontinued HYDROcodone-dread taminophen (NORCO) 5-325 mg per tabletIndicatio ns:Pain Take 1 tablet by mouth every 6 (six) hours as needed for pain 13 tablet 04/18/19 24 025 Discontinued(P atient Reported) gabapentin (NEURONTIN) 300 mg capsuleIndicati ons:Fibromyalgi a Take 1 tab p.o. daily x3 days. Then take 1 tab p.o. b.i.d. daily x3 days. Finally take 1 tab p.o. t.i.d. thereafter 90 capsule 1 09/03/19 25 025 Discontinued Active Problems Problem Noted Date Diagnosed Date BMI 27.0-27.9,adult 10/15/2024 Assessment & Plan (10/15/2024 3:25 PM CDT): Spondylosis of lumbar region without myelopathy or radiculopathy 10/05/2024 Fibromyalgia 09/02/2024 Assessment & Plan (10/15/2024 3:25 PM CDT): Chronic bilateral low back pain without sciatica 09/02/2024 Degeneration of intervertebr al disc of lumbar region with discogenic back pain 09/02/2024 Rheumatoid arthritis 10/18/2023 Assessment & Plan (10/15/2024 3:25 PM CDT): Trigger thumb of left hand 04/04/2023 Trigger middle finger of right hand 04/04/2023 Trigger ring finger of right hand 04/04/2023 Biceps tendinitis on right 01/06/2019 Overview (01/06/2019): Added automatically from request for surgery [id number] Arthritis of right acromioclavicular joint 01/06 Overview (01/06/2019): Added automatically from request for surgery [id number] Nontraumatic tear of right rotator cuff 01/07/20 19 Overview (01/06/2019): Added automatically from request for surgery [id number] Chronic right shoulder pain 06/05/2017 Overview (06/05/2017): Managed by Ortho Arthralgia of multiple joints 06/05/2017 Assessment & Plan (06/05/2017 9:11 AM CDT): Has been seen by Ortho in the past, had steroid inj in right shoulder, but feels like she hurts all over, would like to see a Smt Machine Operator. Referral generated. Matt added. 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 Regular aerobic exercise. Medication changes per orders. D/C's sertraline, switched to Cymbalta for management of Anx/Dep and chronic musculoskeletal pain. Referral to psychiatry. Patient DECLINED. Psychological condition will be reassessed at the next regular appointment. Essential hypertension 03/26/2014 Overview (05/18/2016): Essential hypertension Assessment & Plan (10/15/2024 3:25 PM CDT): Bp in the office today BP Readings from Last 3 Encounters: 10/15/24 118/64 10/05/24 136/77 09/02/24 135/80 Recommend DASH diet, heart-healthy lifestyle, exercise. Discussed the risks of hypertension. Assessment & Plan (06/05/2017 9:07 AM CDT): Hypertension is unchanged. Continue current treatment regimen. Dietary sodium restriction. Regular aerobic exercise. Continue current medications. Blood pressure will be reassessed at the next regular appointment. Insomnia 11/16/2013 Overview (05/18/2016): Insomnia Anxiety 11/16/2013 Overview (05/18/2016): Anxiety Assessment & Plan (10/15/2024 3:25 PM CDT): Assessment & Plan (06/05/2017 9:09 AM CDT): Patient informed that I would switch her Xanax to Klonopin, hoping for a more steady state. She was also informed that if she prefers to go back to Xanax, that I would refer her on to Psychiatry for further mgmt of her anxiety. Cymbalta was also added to help with her anxiety. Migraine 11/16/2013 Overview (05/18/2016): Migraine Eczema 06/27/2013 Overview (05/18/2016): Eczema Encounters Date Type Department Care Team Description 10/27/2024 2:56 PM CDT - 10/27/2024 11:59 PM CDT Hospital Encounter [facility] [address] [place] [address] Vance Yee NP Degeneration of intervertebral disc of lumbar region with discogenic back pain (Primary Dx); Spondylosis of lumbar region without myelopathy or radiculopathy; Rheumatoid arthritis, involving unspecified site, unspecified whether rheumatoid factor present (HCC) Discharge Disposition: Discharge to home or self care 10/23/2024 Results Follow-Up [facility] Primary Care at [address] [phone] Merly Oro MD Hepatitis C antibody Blood, Hepatitis B core antibody, total Blood, Hepatitis B surface antibody (immune status) Blood, Additional followed-up results: 8 10/21/2024 8:45 AM CDT Lab [address] [address] Need for hepatitis C screening test; Need for hepatitis B screening test; Encounter for wellness examination 10/21/2024 Telephone [facility] Primary Care at [address] [phone] Merly Oro MD Medical Question/Miscellaneou s 10/19/2024 12:00 PM CDT - 10/19/2024 11:59 PM CDT Hospital Encounter [facility] [address] [place] [phone] Philippe Lee MD Spondylosis of lumbar region without myelopathy or radiculopathy Discharge Disposition: Discharge to home or self care 10/15/2024 2:15 PM CDT Office Visit [facility] at [address] [phone] Merly Oro MD Encounter for wellness examination (Primary Dx); Encounter to establish care; Essential hypertension; Anxiety; Mild episode of recurrent major depressive disorder; Rheumatoid arthritis, involving unspecified site, unspecified whether rheumatoid factor present (HCC); Fibromyalgia; Need for hepatitis B screening test; Need for hepatitis C screening test; Encounter for screening for HIV; BMI 27.0-27.9,adult 10/15/2024 Orders Only [facility] at [place] [address] [facility] [address] [place] [address] Merly Oro MD Kidney cysts (Primary Dx) 10/05/2024 8:30 AM CDT - 10/05/2024 11:59 PM CDT Hospital Encounter [facility] [address] [place] [address] Vance Yee NP Chronic bilateral low back pain without sciatica (Primary Dx); Degeneration of intervertebral disc of lumbar region with discogenic back pain; Spondylosis of lumbar region without myelopathy or radiculopathy Discharge Disposition: Discharge to home or self care 09/11/2024 8:13 AM CDT - 09/11/2024 11:59 PM CDT Hospital Encounter [facility] [address] [place] [address] Low back pain, unspecified back pain laterality, unspecified chronicity, unspecified whether sciatica present; Rheumatoid arthritis, involving unspecified site, unspecified whether rheumatoid factor present (HCC) Discharge Disposition: Discharge to home or self care 09/02/2024 1:49 PM CDT - 09/02/2024 11:59 PM CDT Hospital Encounter [facility] [address] [place] [address] Vance Yee NP Low back pain, unspecified back pain laterality, unspecified chronicity, unspecified whether sciatica present (Primary Dx); Rheumatoid arthritis, involving unspecified site, unspecified whether rheumatoid factor present (HCC); Fibromyalgia; Degeneration of intervertebral disc of lumbar region with discogenic back pain; Chronic bilateral low back pain without sciatica Discharge Disposition: Discharge to home or self care 08/12/2024 3:35 PM CDT - 08/12/2024 11:59 PM CDT Hospital Encounter [facility] [address] [place] [id number] Discharge Disposition: Discharge to home or self care from Last 3 Months Immunizations Immunization Administration Dates Next Due Influenza, Quadrivalent, Kinsey l Culture-based MDCK, Antibiotic Free, Intramuscular 12/07/2019 Influenza, Quadrivalent, Spl it, Intramuscular 11/16/2013 Influenza, Quadrivalent, Spl it, Preservative Free, Intradermal 12/06/2014 Influenza, Quadrivalent, Spl it, Preservative Free, Intramuscular 11/26/2020,10/14/2017,10/13/2017,10/05,11/12/2015 Influenza, Split 12/04/2012,11/06/2011 Influenza, Unspecified 12/06/2019,10/11/2017, Pneumococcal Conjugate Pcv20 12/11/2021 Sars-CoV-2, Unspecified 05/26/2020,04/28/2020 Td, adsorbed 09/13/2003 Tdap 11/06/2021, 9,02/25/2012,02/24 ZOSTER Recombinant 03/30/2021,10/22/2020 Surgical History Surgery Date Site/Laterality Comments DILATION AND CURETTAGE OF UTERUS 02/11/1995 - 02/11/1996 for miscarriage ENDOMETRIAL ABLATION W/ NOVASURE 02/11/2010 - 02/10/2011 SALPINGECTOMY 02/11/2015 - 02/11/2016 laparoscopic bilateral salpingectomy for sterilization CHOLECYSTECTOMY 02/11/2017 - 02/10/2018 ROTATOR CUFF REPAIR 02/11/2018 - 02/10/2019 Right Medical History Medical History Date Comments Headache Anxiety Insomnia Hypertension 2014 PONV (postoperative nausea and vomiting) RA (rheumatoid arthritis) Family History Medical History Relation Name Comments Asthma Daughter Hypertension Father Ovarian cancer Father's Sister Brain cancer Maternal Grandfather Skin cancer Maternal Grandfather Osteoporosis Maternal Grandmother Hypertension Mother Osteoporosis Mother Seizures Niece Hypertension Sister Relation Name Status Comments Daughter Father Father's Sister Maternal Grandfather Maternal Grandmother Mother Niece Sister Social History Tobacco Use Types Packs/Day Years [...] on file Legal Sex Female 1:42 AM STRUCTURAL STEEL ERECTION SUPERVISOR Gender Identity Female 01/31/2021 11:29 PM STRUCTURAL STEEL ERECTION SUPERVISOR Sexual Orientation Straight 01/31/2021 11 :29 PM STRUCTURAL STEEL ERECTION SUPERVISOR 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 Not on file Not on file Not on file Obstetrics History Para Term AB IAB SAB Ectopic Multiple Livin g Live Births 3 2 2 0 1 0 1 0 0 2 2 Date Outcome GA Total Labor Labor/2nd/3rd Weight Sex Type Anes PTL Marilee A1 A5 Name Clin Term Term SAB Last Filed Vital Signs Vital Sign Reading Time Taken Comments Blood Pressure 149/86 10/27/2024 3:02 PM CDT Pulse 77 10/27/2024 3:02 PM CDT Temperature 36.4 C (97.5 F) 10/19/2024 12:08 PM CDT Respiratory Rate 16 10/27/2024 3:02 PM CDT Oxygen Saturation 100% 10/27/2024 3:02 PM CDT Inhaled Oxygen Concentration - - Weight 67 kg (147 lb 12.8 oz) 10/15/2024 2:11 PM CDT Height 157.5 cm (5' 2) 10/15/2024 2:11 PM CDT Body Mass Index 27.03 10/15/2024 2:11 PM CDT Plan of Treatment Health Maintenance Due Date Last Done Comments Colon Cancer Screening-Colonoscopy 1969 Breast Cancer Screening-Mammogram 12/25/2024 12/26/2023, 12/11/2022, 12/05/2021, Additional history exists Influenza Vaccine (#1) 2025 , 12/07/2019, 12/06/2019, Additional history exists Postponed from 10/12/2024 (Patient declined, but will receive in the future) Depression Screening 10/15/2025 10/15/2024, 06/05/2017, 07/16/2016 Regular Well Visit/Exam 18-64 10/15/2025 10/15/2024, 10/18/2023, 08/22/2022, Additional history exists Cervical Cancer Screening 06/12/2026 06/12/2021, DTaP/Tdap/Td Vaccine (5 - Td or Tdap) 11/07/2031 11/06/2021, 10/17/2018, 02/25/2012, Additional history exists Zoster Vaccine Completed 03/30/2021, 10/22/2020 Pneumococcal vaccine <65 Aged Out 12/11/2021 No longer eligible based on patient's age to complete this topic Hepatitis B Screening Completed 10/21/2024 Hepatitis C Screening Completed 10/21/2024 Medical Devices Implanted Type Area Metallic Yarn Slitting Machine Operator Device Identifier Shelf Expiration Date Model / Serial / Lot [employer] 2504-1 Regenerate Tendon Odessa Suture - [id number] Implanted:Qty: 1 on 01/29/2019 by Indra Acosta MD at [facility] Right: Shoulder [employer] 05/15/2019 2504-1 / / [id number] [employer] 2503-A Arthroscopic Delivery System Odessa Suture Sterile Disposable - [id number] Implanted:Qty: 1 on 01/29/2019 by Indra Acosta MD at [facility] Right: Shoulder [employer] 02/17/2019 2503-A / / [id number] [employer] 2169-2 Reconstitute Scaffold Medium Mesh Surgical Collagen Sterile Latex - [id number] Implanted:Qty: 1 on 01/29/2019 by Indra Acosta MD at [facility] Right: Shoulder [employer] 06/10/2021 2169-2 / / [id number] Procedures Procedure Name Priority Date/Time Associated Diagnosis Comments EGFR Routine 10/21/2024 8:46 AM CDT Encounter for wellness examination DIFFERENTIAL AUTO Routine 10/21/2024 8:4 6 AM CDT Encounter for wellness examination CBC WITH AUTO DIFFERENTIAL Routine 10/21/2024 8:46 AM CDT Encounter for wellness examination COMPREHENSIVE METABOLIC PANEL Routine 10/21/2024 8:46 AM CDT Encounter for wellness examination HEMOGLOBIN A1C Routine 10/21/2024 8:46 AM CDT Encounter for wellness examination LIPID PANEL Routine 10/21/2024 8:46 AM CDT Encounter for wellness examination THYROID FUNCTION CASCADE Routine 10/21/2024 8:46 AM CDT Encounter for wellness examination HEPATITIS B SURFACE ANTIGEN Routine 10/21/2024 8:46 AM CDT Need for hepatitis B screening test HEPATITIS B SURFACE ANTIBODY (IMMUNE STATUS) Routine 10/21/2024 8:46 AM CDT Need for hepatitis B screening test HEPATITIS B CORE ANTIBODY, TOTAL Routine 10/21/2024 8:46 AM CDT Need for hepatitis B screening test HEPATITIS C ANTIBODY Routine 10/21/2024 8:46 AM CDT Need for hepatitis C screening test PAIN MGMT IMAGING LUMBAR/SACRAL FACET/ MEDIAL BRANCH BLOCK BILATERAL Schedule Routine, Read Routine (OP Routine) 10/19/2024 12:27 PM CDT Spondylosis of lumbar region without myelopathy or radiculopathy MRI LUMBAR SPINE WO CONTRAST Schedule Routine, Read Routine (OP Routine) 09/11/2024 8:47 AM CDT Low back pain, unspecified back pain laterality, unspecified chronicity, unspecified whether sciatica present Rheumatoid arthritis, involving unspecified site, unspecified whether rheumatoid factor present (HCC) TB TEST, QUANTIFERON GOLD Routine 08/12/2024 11:01 AM CDT SCREENING MAMMOGRAM BILATERAL W DINO Schedule Routine, Read Routine (OP Routine) 12/26/2023 2:28 PM STRUCTURAL STEEL ERECTION SUPERVISOR Encounter for screening mammogram for breast cancer PAP AND HIGH RISK HPV, REFLEX TO GENOTYPING Routine 06/12/2021 11:12 AM CDT from Last 3 Months or Most Recently Relevant to Health Maintenance Results * eGFR (10/21/2024 8:46 AM CDT) eGFR >90 >=60 mL/min/1. 73 m2 Comment: Interpretive Data Reference Interval Normal >/= 90 [...] Current interpretive data was last reviewed 2020. Blood 10/21/2024 8:46 AM CDT 10/21/2024 9:26 AM CDT us Merly Oro MD LAB BLOOD ORDERABLES Final Result [facility] [place] [address] [facility] Department [place] [address] * Differential, auto (10/21/2024 8:46 AM CDT) Neutrophil abs 2.61 1.50 - 6.50 K/cumm Imm gran abs 0.01 0.00 - 0.10 K/cumm [facility] Lymphocyte abs 1.89 0.80 - 3.30 K/cumm [facility] Monocyte abs 0.46 0.20 - 0.80 K/cumm [facility] Eosinophil abs 0.05 0.00 - 0.50 K/cumm [facility]) Basophil abs 0.04 0.00 - 0.10 K/cumm [facility] Neutrophil pct 51.5 % [facility] Comment: Interpretive Data Percent cell count reference ranges are not reported, since discordance with absolute values may lead to misinterpretation of CBC data. Current Interpretive Data was last revised on 2017. Imm gran pct 0.2 % [facility] Comment: Interpretive Data Percent cell count reference ranges are not reported, since discordance with absolute values may lead to misinterpretation of CBC data. Current Interpretive Data was last revised on 2017. Lymphocyte pct 37.4 % [facility] Comment: Interpretive Data Percent cell count reference ranges are not reported, since discordance with absolute values may lead to misinterpretation of CBC data. Current Interpretive Data was last revised on 2017. Monocyte pct 9.1 % [facility] Comment: Interpretive Data Percent cell count reference ranges are not reported, since discordance with absolute values may lead to misinterpretation of CBC data. Current Interpretive Data was last revised on 2017. Eosinophil pct 1.0 % [facility] Comment: Interpretive Data Percent cell count reference ranges are not reported, since discordance with absolute values may lead to misinterpretation of CBC data. Current Interpretive Data was last revised on 2017. Basophil pct 0.8 % [facility] ([place] Comment: Interpretive Data Percent cell count reference ranges are not reported, since discordance with absolute values may lead to misinterpretation of CBC data. Current Interpretive Data was last revised on 2017. Blood 10/21/2024 8:46 AM CDT 10/21/2024 9:26 AM CDT us Merly Oro MD LAB BLOOD ORDERABLES Final Result [facility] ([place] [address] [facility] Department [place] [address] * Thyroid Function [place] (10/21/2024 8:46 AM CDT) TSH 1.75 0.30 - 4.20 mcIUnit/mL [facility]) Blood 10/21/2024 8:46 AM CDT 10/21/2024 9:26 AM CDT us Merly Oro MD LAB BLOOD ORDERABLES Final Result Performing Organization Address City/[facility]/ZIP Co de Phone Number [facility] ([place]) [address] [facility] [place] [address] * CBC with auto differential (10/21/2024 8:46 AM CDT) Pathologist [facility] WBC 5.06 3.80 - 9.90 K/cumm Hgb 14.2 11.9 - 15.5 g/dL [facility] Hct 41.9 35.6 - 45.5 % [facility] Plt 279 150 - 400 K/cumm [facility] MPV 9.5 9.1 - 12.3 fL [facility] RBC 4.63 3.90 - 5.20 M/cumm [facility] MCV 90.5 81.3 - 96.4 fL [facility] MCH 30.7 27.1 - 33.3 pg [facility] MCHC 33.9 32.3 - 35.7 g/dL [facility] RDW CV 11.9 11.1 - 14.9 % [facility] RDW SD 39.3 35.7 - 48.1 fL [facility] NRBC abs 0.00 0.00 - 0.01 K/cumm [facility] Blood 10/21/2024 8:46 AM CDT 10/21/2024 9:26 AM CDT us Merly Oro MD LAB BLOOD ORDERABLES Final Result [facility] [address] [facility] [address] * Hepatitis C antibody Blood (10/21/2024 8:46 AM CDT) [facility] Hep C Ab Nonreactive Nonreactive Comment: Interpretive Data Nonreactive: Antibodies to HCV not detected. Does NOT exclude the possibility of recent exposure to HCV. Equivocal: Equivocal for HCV antibodies. Supplemental molecular testing will be automatically performed to determine infection status in accordance with current CDC screening recommendations. Reactive: Positive for HCV antibodies. This may represent current or past HCV infection. Supplemental molecular testing will be automatically performed to determine current infection status in accordance with current CDC screening recommendations. Interpretive data was last revised on 2019. Testing performed by: [facility], [address] [place] [address], [id number] Blood 10/21/2024 8:46 AM CDT 10/21/2024 11:11 AM CDT Merly Oro MD LAB MICROBIOLOGY - GE NERAL ORDERABLES Final Result [facility] [address] [place] [id number] * Hepatitis B core antibody, total Blood (10/21/2024 8:46 AM CDT) [facility] Hep B core IgG/IgM Nonreactive Nonreactive Comment:Testing performed by : [facility], [address] [place] [address], [id number] Blood 10/21/2024 8:46 AM CDT 10/21/2024 12:29 PM CDT Merly Oro MD LAB MICROBIOLOGY - GE NERAL ORDERABLES Final Result [facility] [address] [facility] [place] [address] * Hepatitis B surface antibody (immune status) Blood (10/21/2024 8:46 AM CDT) [facility] HBsAb (immune status) Nonreactive Comment: Interpretive Data Nonreactive: This result is consistent with a lack of immunity to Hepatitis B Virus when used in the setting of routine screening. Equivocal: The immune status of the individual should be further assessed, if appropriate, after consideration of clinical status, risk factors, and additional diagnostic information. Reactive: This result is consistent with immunity to Hepatitis B Virus when used in the setting of routine screening. Current interpretive data was last revised on 19. Testing performed by: [facility], [address] [place] [address], [id number] Blood 10/21/2024 8:46 AM CDT 10/21/2024 11:11 AM CDT us Merly Oro MD LAB MICROBIOLOGY - GE NERAL ORDERABLES Final Result Performing Organization Address [facility]/ZIP Co de Phone Number [facility] [address] [place] [address] [place] [address] * Hepatitis B Surface Antigen Blood (10/21/2024 8:46 AM CDT) [facility] HepBsAg Nonreactive Nonreactive Comment:Testing performed by : [facility], [address] [place] [address]., [id number] Blood 10/21/2024 8:46 AM CDT 10/21/2024 11:11 AM CDT us Merly Oro MD LAB MICROBIOLOGY - GE NERAL ORDERABLES Final Result [facility] [address] [facility] [place] [address] * Hemoglobin A1c (10/21/2024 8:46 AM CDT) [facility] Hgb A1C 5.4 4.0 - 5.6 % [facility] [place] Estimated Average Glucose 108 mg/dL [facility] [place] Comment: The ADA recommends reporting an estimated Average Glucose (eAG) with all Hemoglobin A1c results using the equation derived from a study of 507 normal and diabetic adults. Minority populations were underrepresented and children were not included. (Diabetes Care 31:3892-9035, 2008). The eAG is not equivalent to a fasting glucose. Testing performed by: [facility], [address] [facility], [place], [address] Blood 10/21/2024 8:46 AM CDT 10/21/2024 9:26 AM CDT Merly Oro MD LAB BLOOD ORDERABLES Final Result [facility] [address] [facility] Department [place] [address] * Lipid panel (10/21/2024 8:46 AM CDT) Cholesterol 171 30 - 199 mg/dL [facility] [place] Comment: Interpretive Data Ages < or = 19 years Acceptable: <170 mg/dL Borderline high: 170-199 mg/dL High: >or= 200 mg/dL Ages > or = 20 years Desirable: <200 mg/dL Borderline high: 200-239 mg/dL High: >or= 240 mg/dL Literature References: 1. Expert Panel on Integrated Guidelines for Cardiovascular Health and Risk Reduction in Children and Adolescents. Pediatrics 2011;128:S213 2. NCEP Expert Panel. Circulation 2004;110:227 Current Interpretive Data was last revised on 2017. Triglycerides 63 <=149 mg/dL JULIANNA KINGSLEY ([place]) Comment: Interpretive Data Ages < or = 9 years Acceptable: <75 mg/dL Borderline high: 75-99 mg/dL High: >or= 100 mg/dL Ages 10 to 20 years Acceptable: <90 mg/dL Borderline high: 90-129 mg/dL High: >or= 130 mg/dL Ages > or = 20 years Desirable: <150 mg/dL Borderline high: 150-199 mg/dL High: 200-499 mg/dL Very high: >or= 499 mg/dL Literature References: 1. Expert Panel on Integrated Guidelines for Cardiovascular Health and Risk Reduction in Children and Adolescents. Pediatrics 2011;128:S213 2. NCEP Expert Panel. Circulation 2004;110:227 Current Interpretive Data was last revised on 2017. HDL 50 >=40 mg/dL JULIANNA Cortez ([place]) Comment: Interpretive Data Ages < or = 19 years Acceptable: >45 mg/dL Borderline low: 40-45 mg/dL Low: <40 mg/dL Ages > or = 20 years Desirable: >or= 60 mg/dL Low: <40 mg/dL Literature References: 1. Expert Panel on Integrated Guidelines for Cardiovascular Health and Risk Reduction in Children and Adolescents. Pediatrics 2011;128:S213 2. NCEP Expert Panel. Circulation 2004;110:227 Current Interpretive Data was last revised on 2017. LDL, calculated 109 <=129 mg/dL JULIANNA KINGSLEY ([place]) Comment: Interpretive Data Ages < or = 19 years Acceptable: <110 mg/dL Borderline high: 110-129 mg/dL High: >or= 130 mg/dL Ages > or = 20 years Optimal: <100 mg/dL Near optimal: 100-129 mg/dL Borderline high: 130-159 mg/dL High: >160 mg/dL Calculated using the Camilo LDL-C estimating equation. This equation was implemented on 2023. Prior to this date LDL-C was estimated using the Friedewald equation. Literature References: 1. Expert Panel on Integrated Guidelines for Cardiovascular Health and Risk Reduction in Children and Adolescents. Pediatrics 2011;128:S213 2. NCEP Expert Panel. Circulation 2004;110:227 3. Camilo Ortega et al. RICARDO Cardiol. 2019June 11;5(5):540-548. doi: 10.1001/jamacardio.2020.0013 Current Interpretive Data was last revised on 2023. Testing performed by: [facility], [facility], [place], [address] Non-HDL Cholesterol 121 mg/dL JULIANNA KINGSLEY ([place]) Comment: Interpretive Data Ages < or = 19 years Acceptable: <120 mg/dL Borderline high: 120-144 mg/dL High: >145 mg/dL Ages > or = 20 years When triglycerides are >200 mg/dL, Non-HDL cholesterol is a secondary target of therapy with treatment goals that are 30 mg/dL greater than the LDL cholesterol target. Literature References: 1. Expert Panel on Integrated Guidelines for Cardiovascular Health and Risk Reduction in Children and Adolescents. Pediatrics 2011;128:S213 2. NCEP Expert Panel. Circulation 2004;110:227 Current Interpretive Data was last revised on 2017. Testing performed by: [facility], [facility], [place], [address] Chol/HDL ratio 3 [facility] ([place]) Comment:Testing performed by : [facility], [facility], [place], [address] Blood 10/21/2024 8:46 AM CDT 10/21/2024 9:26 AM CDT us Merly Oro MD LAB BLOOD ORDERABLES Final Result [facility] ([place]) 1 [facility] Department [place] [address] * Comprehensive metabolic panel (10/21/2024 8:46 AM CDT) Sodium 141 135 - 145 mmol/L [facility] ([place]) Potassium, pl 4.1 3.3 - 4.9 mmol/L [facility] ([place]) Chloride 108 97 - 110 mmol/L [facility] ([place]) CO2 23 22 - 32 mmol/L [facility] ([place]) Anion gap 10 2 - 15 mmol/L [facility] ([place]) BUN 11 6 - 25 mg/dL [facility] ([place]) Creatinine 0.75 0.60 - 1.10 mg/dL [facility] ([place]) Glucose 96 70 - 199 mg/dL [facility] ([place]) Comment: Interpretive Data Fasting glucose >/= 126 mg/dl [...] Current interpretive data was last revised 2022. Calcium 9.4 8.5 - 10.3 mg/dL [facility] ([place]) Bilirubin, total 0.6 0.1 - 1.2 mg/dL [facility] ([place]) Protein, pl 7.1 6.5 - 8.5 g/dL [facility] ([place]) Albumin 4.4 3.5 - 5.0 g/dL [facility] ([place]) Alk phos 79 40 - 130 Units/L [facility] ([place]) ALT 16 7 - 45 Units/L [facility] ([place]) AST 23 10 - 45 Units/L [facility] ([place]) Blood 10/21/2024 8:46 AM CDT 10/21/2024 9:26 AM CDT Merly Oro MD LAB BLOOD ORDERABLES Final Result Performing Organization Address [facility]/ZIP Co de Phone Number JULIANNA [facility] ([place]) 1 [facility] Department [place] [address] * Imaging Lumbar/Sacral Facet Medial Branch Block Bilateral (42087) (10/19/2024 12:27 PM CDT) Narrative RAD_PACS_CH - 10/19/2024 12:28 PM CDT The images from this study are not interpreted by Radiology. Please refer to the physician's procedure / OR operative note. Vance Yee FIELD ORGANIZER IMG PAIN MGMT PROCEDURES Rosa l Result RAD_PACS_CH * MRI Lumbar Spine WO Contrast (09/11/2024 8:47 AM CDT) Anatomical Region Laterality Modality Spine N/A Magnetic Resonan ce 09/11/2024 11:0 6 AM CDT Narrative 09/11/2024 11:13 AM CDT EXAM DESCRIPTION: MRI LUMBAR SPINE WO CONTRAST REASON FOR STUDY: Low back pain, symptoms persist with > 6 wks treatment Pt says chronic back pain for as long as she can remember. No known injury. TECHNIQUE: Sagittal and Axial imaging includes T1, T2, STIR sequences. COMPARISON: Lumbar spine radiographs dated 07/22/2023 and 08/26/2019. FINDINGS: SEGMENTATION: 5 elf-ocz-aeecnjk lumbar type vertebral bodies. ALIGNMENT: Mild levoconvex curvature. Mild retrolisthesis of L2 on L3. VERTEBRAE: No acute compression fracture in the lumbar spine. Multilevel endplate degenerative changes and marginal spur formation. Rounded T1 and T2 hyperintense foci including in the L4 vertebral body in keeping with intraosseous hemangioma and/or focal fatty marrow. DISC HEIGHT: Multilevel disc desiccation and height loss. HARDWARE: None in the spine. CORD/CAUDA: Conus medullaris terminates at L1. LOWER THORACIC: Incompletely imaged. No high-grade spinal canal stenosis. INDIVIDUAL DISC LEVELS: L1-L2: No significant disc bulge, spinal canal or neural foraminal narrowing. L2-L3: Retrolisthesis of L2 on L3 with unroofing of the disc. Bilateral facet arthropathy. Flattening of the ventral thecal sac. No significant neural foraminal narrowing. L3-L4: Disc bulge with bilateral facet arthropathy. Flattening of the ventral thecal sac. Zlda-zc-nwlpyptx proximal right and mild left neural foraminal narrowing. L4-L5: Disc bulge with thickened ligamentum flavum and facet arthropathy. Flattening of the ventral thecal sac. Gson-vh-zgxgafsz right and mild left neural foraminal narrowing. L5-S1: Disc bulge with bilateral facet arthropathy. Flattening of the ventral thecal sac. Mild bilateral neural foraminal narrowing. VISUALIZED UPPER ABDOMEN: Left renal rounded T2 hyperintense foci are incompletely characterized on this MRI but commonly reflects a cyst. The need for dedicated imaging as clinically indicated. IMPRESSION: 1. Cvfj-ys-hymuremj lumbar degenerative changes as above. No significant spinal canal stenosis. 2. Varying degrees of bilateral neural foraminal stenosis and other findings as above. THIS IS AN ELECTRONICALLY VERIFIED FINAL REPORT 09/11/2024 11:13 AM - Electronically signed by Frantz Osman D.O. AP: AP Report ID: [id number] Reading Location: [id number] Procedure Note Frantz Osman, DO - 09/11/2024 EXAM DESCRIPTION: MRI LUMBAR SPINE WO CONTRAST REASON FOR STUDY: Low back pain, symptoms persist with > 6 wks treatment Pt says chronic back pain for as long as she can remember. No knowninjury. TECHNIQUE: Sagittal and Axial imaging includes T1, T2, STIR sequences. COMPARISON: Lumbar spine radiographs dated 07/22/2023 and 08/26/2019. FINDINGS: SEGMENTATION: 5 uxh-nvw-cndujxd lumbar type vertebral bodies. ALIGNMENT: Mild levoconvex curvature. Mild retrolisthesis of L2 on L3. VERTEBRAE: No acute compression fracture in the lumbar spine.Multilevel endplate degenerative changes and marginal spur formation. Rounded T1 andT2 hyperintense foci including in the L4 vertebral body in keeping with intraosseous hemangioma and/or focal fatty marrow. DISC HEIGHT: Multilevel disc desiccation and height loss. HARDWARE: None in the spine. CORD/CAUDA: Conus medullaris terminates at L1. LOWER THORACIC: Incompletely imaged. No high-grade spinal canalstenosis. INDIVIDUAL DISC LEVELS: L1-L2: No significant disc bulge, spinal canal or neural foraminalnarrowing. L2-L3: Retrolisthesis of L2 on L3 with unroofing of the disc. Bilateralfacet arthropathy. Flattening of the ventral thecal sac. No significant neural foraminal narrowing. L3-L4: Disc bulge with bilateral facet arthropathy. Flattening of theventral thecal sac. Nshg-su-exadgyun proximal right and mild left neuralforaminal narrowing. L4-L5: Disc bulge with thickened ligamentum flavum and facet arthropathy. Flattening of the ventral thecal sac. Ezcw-fw-rzwagjqo right and mildleft neural foraminal narrowing. L5-S1: Disc bulge with bilateral facet arthropathy. Flattening of theventral thecal sac. Mild bilateral neural foraminal narrowing. VISUALIZED UPPER ABDOMEN: Left renal rounded T2 hyperintense foci are incompletely characterized on this MRI but commonly reflects a cyst. Theneed for dedicated imaging as clinically indicated. IMPRESSION: 1. Hmgv-od-nynahazn lumbar degenerative changes as above. Nosignificant spinal canal stenosis. 2. Varying degrees of bilateral neural foraminal stenosis and otherfindings as above. THIS IS AN ELECTRONICALLY VERIFIED FINAL REPORT 09/11/2024 11:13 AM - Electronically signed by Frantz Osman D.O. AP: EZEQUIEL Report ID: [id number] Reading Location: [id number] Vance Yee FIELD ORGANIZER IMG MRI PROCEDURES Final Resu lt * TB test, quantiferon gold (08/12/2024 11:01 AM CDT) [facility] Quantiferon TB Gold Negative Negative [place] [facility] Comment: No interferon-gamma response to M. tuberculosis antigens was detected. Latent infection with M. tuberculosis is unlikely. A single negative result does not exclude infection with M. tuberculosis. In patients at high risk for M.tuberculosis infection, a second test should be considered in accordance with the 2017 ATS/IDSA/CDC Clinical Practice Guidelines for Diagnosis of Tuberculosis in Adults and Children [Lewinsohn JADE et. al. Clin. Infect. Dis. 2017;64(2):111-115]. The reference range for the 'TB1 Ag minus Nil Result' and 'TB2 Ag minus Nil Result' is an Interferon-gamma level <0.35 IU/mL. TB-Nil 0.00 IUnits/mL [facility] TB2-Nil 0.00 IUnits/mL [facility] Mitogen-Nil 9.98 IUnits/mL [facility] NIL 0.02 IUnits/mL [facility] Comment: Test Performed by: [facility] [place] [address] Records Analysis Manager: Young De Anda Ph.D.; CLIA# [id number] Blood 08/12/2024 11:0 1 AM CDT 08/12/2024 6:17 PM CDT us Dipika Prakash MD LAB BLOOD ORDERABLES Final Resul t [facility] [address] Department [place] [address] [facility] * Screening Mammogram Bilateral W Dino (12/26/2023 2:28 PM STRUCTURAL STEEL ERECTION SUPERVISOR) Anatomical Region Laterality Modality Breast Bilateral Mammography 12/26/2023 3:28 PM STRUCTURAL STEEL ERECTION SUPERVISOR Impressions 12/26/2023 3:28 PM STRUCTURAL STEEL ERECTION SUPERVISOR There is no mammographic evidence of malignancy. A 1 year screening mammogram is recommended. BI-RADS: 1 - Negative. The patient has been or will be contacted. The patient will be entered into a reminder system with a target due date of 1 year for her next mammogram. Electronically signed by: Ashtyn Cason M.D. Narrative 12/26/2023 3:28 PM STRUCTURAL STEEL ERECTION SUPERVISOR EXAMINATION: SCREENING MAMMOGRAM BILATERAL W DINO ORDERING HEALTHCARE PROVIDER: ADELIA CERNA HISTORY: Routine screening mammography. COMPARISON: 12/11/2022, 12/05/2021, 09/23/2020, 03/30/2019 TECHNIQUE: CC and MLO views of the bilateral breasts were obtained with digital technique using breast tomosynthesis with C view. Computer aided detection was utilized. FINDINGS: DENSITY: There are scattered areas of fibroglandular density. BREASTS: There are no suspicious masses, suspicious calcifications, or other suspicious findings in either breast. There has been no suspicious interval change. us Adelia Cerna MD IMG MAMMO PROCEDURES Final Result * Pap and High Risk HPV, reflex to Genotyping (06/12/2021 11:12 AM CDT) Pap test 06/12/2021 11:1 2 AM CDT 06/12/2021 11:12 AM CDT Narrative 06/14/2021 3:24 PM CDT [facility] Department of Pathology [address] [place], [place] [id number] Final Report with Addendum Note to Patients: This report may contain a detailed description of human tissue sent by a health care provider to the laboratory for pathologic evaluation. The content of this report is essential for diagnosis and may provide important critical findings. This information may be unfamiliar to patients to review without a medical professional present. It is advised that the patient review this report in the presence of a health care provider who can answer questions and explain the details. Patient Name: CASSIE ROJAS Address: [address] [place], [place] [id number] Gender: F : 1970 (Age: 51) Service: Laboratory Location: Lab Hospital #: [id number] Patient Type: Ref Lab Taken: 06/12/2021 Received: 06/12/2021 Accessioned:: 06/13/2021 Reported: 06/14/2021 Physician(s): MD Adelia Campos MD Diagnosis: Source of Specimen: SCREENING THIN PREP IMAGED PAP w/ HPV Specimen Adequacy: - Satisfactory for evaluation; endocervical/transformation zone component present General Category: - Negative for intraepithelial lesion or malignancy MATTY Aquino(ASCP) Report Electronically Reviewed and Signed Out By MATTY Aquino(ASCP) 06/14/2021 15:24:36 Addenda: HPV Test Interpretation NEGATIVE for types 16, 18, 31, 33, 35, 39, 45, 51, 52, 56, 58, 59, 66 and 68. Test performed utilizing Gen-Probe Aptima assay. MATTY Gilbert(ASCP) Report Electronically Reviewed and Signed Out By MATTY Gilbert(ASCP) 06/14/2021 11:32:15 Specimen(s) Received: A: SCREENING THIN PREP IMAGED PAP w/ HPV Clinical History: Menstrual History: Ablation The Pap test is a screening test used to aid in the detection of cervical cancer and its precursors. It should not be the sole means by which malignant and premalignant lesions are diagnosed. Both false negative and false positive results may occur. It also has poor sensitivity for the detection of endometrial lesions and should not be used to evaluate suspected endometrial abnormalities. For these reasons it is most important to obtain Pap tests at regular intervals. The performance characteristics of some immunohistochemical stains, fluorescence in-situ hybridization tests and immunophenotyping by flow cytometry cited in this report (if any) were determined by the Surgical Pathology Department at [facility] as part of an ongoing engagement quality consultant program and in compliance with federally mandated regulations drawn from the Clinical Laboratory Improvement Act of 1988 (CLIA '88). Some of these tests rely on the use of analyte specific reagents and are subject to specific labeling requirements by the US Food and Drug Administration. Such diagnostic tests may only be performed in a facility that is certified by the Department of Health and Human Services as a high complexity laboratory under CLIA '88. The FDA has determined that such clearance or approval is not necessary. This test is used for clinical purposes. It should not be regarded as investigational or for research. Nevertheless, federal rules concerning the medical use of analyte specific reagents require that the following disclaimer be attached to the report: This test was developed and its performance characteristics determined by the Surgical Pathology Department [facility]. It has not been cleared or approved by the U. S. Food and Drug Administration. Adelia Cerna MD LAB CYTOLOGY ORDERABL ES Final Result from Last 3 Months or Most Recently Relevant to Health Maintenance Insurance [facility] HMO/PPO Address: [address] [address] [place] [address] [facility] CHOICE PLUS [facility] HMO/PPO Address: [address] [address] [place] [address] [facility] CHOICE PLUS [facility] HMO/PPO Address: [address] [place] [address] [facility] CHOICE PLUS [facility] HMO/PPO Address: [address] [address] [place] [address] Advance Directives For more information, please contact: [phone] Documents on File Type Date Recorded Patient Sales Project Manager Expl anation ADVANCE DIRECTIVE 11/19/2018 Care Teams Land Clearer Relationship Specialty Start Date End Date Merly Oro MD [address] [facility] [address] [place] [address] PCP - General Family Medicine 09/02/24 Dipika Prakash MD [address] [place] [address] Consulting Physician Rheumatology 04/15/23 [place] [address] [place] [address] Consulting Physician Pain Management 10/15/24 Adelia Cerna MD [address] [place] [address] Customer Service Officer Obstetrics and Gynecology 10/15/24 Indra Acosta MD [address] [facility] [address] [facility] [address] [place] [address] Surgeon Orthopedic Surgery 10/15/24
--- OUTSIDE RECORDS SUMMARY | 2024-10-29 00:58 | XMS_ITS | Encounter Summary ---
Author Organization [facility] Address [address] [place] [address] Phone Care Team Providers Care Agricultural Economics Teacher Name Role Phone Amnea Duran MD Primary Care Provider [phone]- [phone] Sanjuanita Oshea MD Unavailable [phone] Unknown, Notinfile Primary Care Provider Unavail able Cyndi Ibarra DO Primary Care Provider [phone]- [phone] Amena Duran MD Primary Care Provider [phone]- [phone] Cyndi Ibarra DO Primary Care Provider [phone]- [phone] Amena Duran MD Primary Care Provider [phone]- [phone] Dipika Prakash MD Unavailable Merly Oro MD Primary Care Provide r Philippe Lee MD Unavailable Vanesa Forman MD Unavailable Indra Acosta MD Unavailable Encounter Details Date Type Department Care Team (Late st Contact Info) Description 01/14/2017 Orders Only [facility] ProviderMarcos MD [address] [place] [address] Social History Tobacco Use Types Packs/Day Years Used Date Smoking Tobacco: Never Smokeless Tobacco: Never Alcohol Use Standard Drinks/Week Comments No 0 (1 standard drink = 0.6 oz pur e alcohol) Comments No Sex and Gender Information Value Date Recorded Sex Assigned at Not on file Legal Sex Female 1:42 AM CIGAR SORTER Gender Identity Female 01/31/2021 11:29 PM CIGAR SORTER Sexual Orientation Straight 01/31/2021 11 :29 PM CIGAR SORTER 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 Historical Provider LAB CYTOLOGY ORDERABLES F inal Result documented in this encounter Visit Diagnoses Not on filedocumented in this encounter Additional Health Concerns Infection Onset Date Last Indicated Resolved Time COVID: Suspected 09/25/2020 09/25/2020 09/25/2020 4:05 PM CDT COVID: Suspected 10/04/2020 10/04/2020 10/04/2020 9:22 AM CDT COVID19 10/04/2020 10/04/2020 10/18/2020 3:05 AM CDT documented as of this encounter Care Teams Agricultural Economics Teacher Relationship Specialty Start Date End Date Amena Duran MD PCP - General 05/11/16 02/26/17 Unknown, Notinfile PCP - General 02/27/17 06/04/17 Cyndi Ibarra DO PCP - General Family Medicine 06/05/17 10/21/17 Amena Duran MD PCP - General 10/22/17 11/07/17 Cyndi Ibarra DO PCP - General Family Medicine 11/08/17 05/23/18 Amena Duran MD PCP - General 05/24/18 09/01/24 Merly Oro MD [address] [facility] [address] [place] [address] PCP - General Family Medicine 09/02/24 Sanjuanita Oshea MD [address] [place] [address] Obstetrics and Gynecology 11/30/16 11/04/18 Dipika Prakash MD [address] [address] Consulting Physician Rheumatology 04/15/23 [place] [address] [facility] [address] [place] [address] Consulting Physician Pain Management 10/15/24 Vanesa Forman MD [address] [place] [address] Principal Law Clerk Obstetrics and Gynecology 10/15/24 Indra Acosta MD [address] [facility] [address] [place] [address] Surgeon Orthopedic Surgery 10/15/24 documented as of this encounter
--- OUTSIDE RECORDS SUMMARY | 2024-10-29 00:58 | XMS_ITS | Clinical Summary ---
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 Active amLODIPine (NORVASC) 5 MG Tablet Take 5 mg by mouth daily. Active clonazePAM (KLONOPIN) 0.5 MG TabletIndicatio ns:anxiety Take 0.5 mg by mouth nightly. Active raNITIdine (ZANTAC) 150 MG Tablet Take 1 Tab by mouth 2 times daily. 180 Tab 8 Active Additional Information Patient not taking.Reported on 10/12/2021 metroNIDAZOLE (FLAGYL) 500 MG Tablet Take 1 Tab by mouth 3 times daily. 30 Tab 8 Active Additional Information Patient not taking.Reported on 10/12/2021 AMOXICILLIN PO Take by mouth. Active predniSONE (DELTASONE) 10 MG TabletIndicatio ns:Facial rash Take 4 tab PO daily x 2 days, 3 tab PO daily x 2 days, 2 tab PO daily x 2 day, 1 tab PO daily x 2 days. 20 Tab 8 Active Additional Information Patient not taking.Reported on 02/21/2022 celecoxib (CELEBREX) 200 MG Capsule Take 200 mg by mouth daily. Active ondansetron (ZOFRAN) 4 MG Tablet Take 1 Tab by mouth every 8 hours as needed for Nausea - 1st line. 10 Tab 9 Active Additional Information Patient not taking.Reported on 02/21/2022 famotidine (PEPCID) 20 MG Tablet Take 1 Tab by mouth 2 times daily as needed for Heartburn. 30 Tab 9 Active Additional Information Patient not taking.Reported on 10/12/2021 C-500 500 MG Chewable Tablet 9 Active Calcium Carbonate-Vitam in D 500-400 MG-UNIT Tablet OTC 7 Active Ascorbic Acid (VITAMIN C) 500 MG Chewable Tablet Take one tablet twice daily 9 Active hydroCHLOROthia zide 12.5 MG Tablet Take 12.5 mg by mouth. 9 Active Potassium Chloride ER (KLORCON) 20 MEQ Tablet Controlled Release Take 20 mEq by mouth. 9 Active promethazine-de xtromethorphan (PROMETHAZINE-D M) 6.25-15 MG/5ML Syrup Take 5 mL by mouth every 4 hours as needed for Cough. 240 mL 0 Active Additional Information Patient not taking.Reported on 02/21/2022 albuterol 108 (90 Base) MCG/ACT Aerosol Solution take 2 Puffs by inhalation every 4 hours as needed for Wheezing or Cough. 8.5 g 0 Active Additional Information Patient not taking.Reported on 02/21/2022 Humira Pen 40 MG/0.4ML Pen-injector Kit 2 Active Active Problems Problem Noted Date Diagnosed Date Choledocholithiasis 07/16/2017 Essential hypertension, benign 07/16/2017 Cholecystitis 07/12/2017 Immunizations Immunization Administration Dates Next Due Influenza Vaccine, Quadrivalent, PF 11/11,10/13/2017,10/04/2016,11/11 Influenza Vaccine,unspecifie d Formulation 11/30/2016 Influenza, Injectable, Mdck,quadrivalent,with Preservative 12/07/2019 Influenza, Injectable, Quadrivalent 11/16/2013 Influenza, Intradermal, Quad rivalent, Preservative Free 12/06/2014 Pneumococcal conjugate PCV20 , polysaccharide [id number] conjugate, adjuvant, PF 12/11/2021 TD VACCINE 09/13/2003 TDAP Vaccine 02/25/2012 Zoster Vaccine Recombinant 03/31/2021,10/23/2020 Family History Medical History Relation Name Comments Cancer Maternal Grandfather melanom a Osteoporosis Mother Skin Cancer Mother Relation Name Status Comments Father Alive Maternal Grandfather Mother Alive Social History Tobacco Use Types Packs/Day Years Used Date Smoking Tobacco: Never Smokeless Tobacco: Never Tobacco Cessation:Counseling Given: No Alcohol Use Standard Drinks/Week Comments No 0 (1 standard drink = 0.6 oz pur e alcohol) Comments No Sex and Gender Information Value Date Recorded Sex Assigned at Not on file Legal Sex Female 11:19 PM CDT Gender Identity Not on file Sexual Orientation Not on file Last Filed Vital Signs Vital Sign Reading Time Taken Comments Blood Pressure 120/72 02/21/2022 8:25 AM FIRE FIGHTER Pulse 64 02/21/2022 8:25 AM FIRE FIGHTER Temperature 36.6 C (97.9 F) 02/21/2022 8:25 AM FIRE FIGHTER Respiratory Rate 18 02/21/2022 8:25 AM FIRE FIGHTER Oxygen Saturation 96% 02/21/2022 8:25 AM FIRE FIGHTER Inhaled Oxygen Concentration - - Weight 62.6 kg (138 lb) 02/21/2022 8:25 AM FIRE FIGHTER Height 157.5 cm (5' 2) 02/21/2022 8:25 AM FIRE FIGHTER Body Mass Index 25.24 02/21/2022 8:25 AM FIRE FIGHTER Plan of Treatment Health Maintenance Due Date Last Done Comments Hepatitis C Virus (HCV) Screening 1970 Hepatitis B Immunization (1 of 3 - 19+ 3-dose series) 1988 Pap Smear 1990 Cervical Cancer Screening (CCS) 06/02/1999 HPV/Cotest 06/02/1999 Cologuard 2014 Colonoscopy 2014 Colorectal Cancer Screening 2014 Immunochemical Fecal Occult Blood 2014 SARS-COV-2 Immunization (3 - Moderna risk series) 06/24/2020 05/27/2020, 04/29/2020 Influenza Immunization (#1) 10/12/202411/11, 12/07/2019, 10/13/2017, Additional history exists Respiratory Syncytial Virus (RSV) Immunization (Adult) (1 - 1-dose 75+ series) 2044 DTaP/Tdap/Td Immunization Discontinued 02/25/2012, 03/2003 Zoster Immunization Completed 03/31/2021, Pneumococcal Immunization (50+ years) Completed 12/11/2021 Pneumococcal Immunization Combined Discontinued 12/11/2021 Human Papillomavirus (HPV) Immunization Aged Out No longer eligible based on patient's age to complete this topic Meningococcal Immunization (ACWY) Aged Out No longer eligible based on patient's age to complete this topic Rotavirus Immunization Aged Out No lo nger eligible based on patient's age to complete this topic Medical Devices Implanted Type Area Cereal Supervisor Device Identifier Shelf Expiration Date Model / Serial / Lot Stent Kyree 7cm 7fr Advanix Naviflex Duodenal Bend Pls Preload Temporary Rpdexc Dlv Sys Acpt .035in Gw - [id number] Implanted:Qty: 1 on 07/12/2017 by Tapan Xiong DO at [facility] IMPLANT [employer] 07/23/2018 [id number] / [id number] [facility] / [id number] Insurance [facility] Advance Directives * Full Code (Latest Code Status on File) Date Activated Date Inactivated Comments 07/13/2017 4:03 PM 07/16/2017 6:33 PM CPR-Full Treat ment: FULL ARREST: Attempt Resuscitation/CPR wit intubation and mechanical ventilation. PRE-ARREST: Use entire range of life support measures to stabilize the patient. Care Teams Litharge Mill Operator Relationship Specialty Start Date End Date Amena Duran MD [address] [facility] [place] [address] PCP - General Internal Medicine 06/16/18
--- NOTE | 2024-10-29 06:54 | WPDHPUPDATE1 ---
History and Physical Update Update Date/Time: 10/29/24 06:54 Patient seen and examined in pre-operative holding area. No interval change in medical history or symptoms. Patient recalls previous discussion of benefits and alternatives to procedure. Continues to desire to proceed with right volar wrist ganglion excision . Reviewed procedure, post-op expectations and risks including but not limited to bleeding, infection, injury to tendon/nerve/vessel, decreased hand function, stiffness, RSD, no change or worsening of symptoms, recurrence. I discussed the possible use of assistants and their participation in the case. Patient stated understanding and signed the consent form wishing to proceed.
--- NOTE | 2024-10-29 06:55 | P.OP_ITS ---
Procedure Note - Detailed Date of Procedure 10/29/24 Pre-op Diagnosis ganglion cyst right wrist Post-op Diagnosis Same Procedure Performed right volar wrist ganglion excision Surgeon Dominic Oneill MD Geophysical Manager brad paige pa-c Anesthesia MAC Description of Procedure INFORMED CONSENT: The patient was seen and examined and marked in the pre-op area.? The patient signed the consent form. PROCEDURE IN DETAIL:The patient taken back to OR on the stretcher in supine position. Time out performed with anesthesia, surgeon and staff agreeing on patient's name site and surgery to be performed SCDs were placed on the lower extremities and inflated. A tourniquet was placed on {right} upper extremity and antibiotics given IV After anesthesia administered sedation I injected {6}cc 1%lido with epi and 0.5% marcaine plain at the operative site The?{right upper extremity}?was prepped and draped in sterile fashion the??{right upper extremity} was? exsanguinated proximal to mass with Esmarch bandage and tourniquet inflated to 250mmHg I proceeded with making a longitudinal incision over the right volar wrist mass through skin and dermis with a 15 blade scalpel. Littler scissors were used to spread through subcutaneous tissue down to the mass. I proceeded with circumferential dissection of the lobulated mass closely associated with radial artery with a combination of 15 blade scalpel and Littler scissors dissecting the stalk down to the volar wrist capsule. The radial artery was protected throughout the procedure. The cyst was transected with bipolar cautery. I irrigated with normal saline. The tourniquet was let down noting the artery was intact and heomastasis achieved with bipolar cautery. The hand was warm and well perfused. I closed with 4-0 vicryl and for dermis and 4-0 Monocryl for subcuticular closure. A dressing of Dermabond, 4x4, serafin, and a volar splint was applied for patient safety, security, and comfort and secured with an dread bandage after the tourniquet was let down noting the hand was warm and well perfused. The patient was then awaken from anesthesia and transferred to the recovery room in stable condition.? Complications - none EBL- 3cc Disposition - home in stable condition Brad Paige PA-C was essential for positioning, retraction, closure and dressing placement [facility] Billing Surgery - Charge Forward: Surgery Billing ([id number] for brad)
[2024-10-29 10:15] VITALS: BP 129/76; PULSE 72; RESP 16; TEMP 36.8; O2SAT 99
[2024-10-29] MEDS: LACTATED RINGERS 1,000 ML 30 ML IV CONT ×2 (10:15→10:25)
[2024-10-29] MEDS: ACETAMINOPHEN 500 MG TABLET 1000 MG PO (10:25)
--- NOTE | 2024-10-29 10:46 | WPDANESEPPF ---
Anes - Initial Pre Proc Eval Procedure: Operation Date: 10/29/24 11:45 Proposed Procedures p Excision Right Volar Wrist Ganglion Cyst - Dominic Oneill MD Date/Time: 10/29/24 10:46 Surgeon: Dominic Oneill MD Pre Op Diagnosis: ganglion cyst right wrist Patient Data Age: 54 Gender: F Height: 1.57 m Weight: 65.9 kg Allergies Allergy/AdvReac Type Severity Reaction Status Date / Time erythromycin base Allergy Nausea Verified 10/21/24 11:49 Home Medications ?Medication ?Instructions ?Recorded ?Confirmed ?Type amlodipine 10 mg tablet 10 mg PO DAILY 10/21/24 10/21/24 History ascorbic acid (vitamin C) 500 mg 500 mg PO DAILY 10/21/24 10/21/24 History tablet (C-500) calcium 500 mg tablet 500 mg PO DAILY 10/21/24 10/21/24 History estradiol-norethindrone acet 1 1 tablet PO DAILY 10/21/24 10/21/24 History mg-0.5 mg tablet (Mimvey) gabapentin 300 mg capsule 300 mg PO Q8H 10/21/24 10/21/24 History mv-min-iron 4.5 mg-folic ac 120 tablet PO DAILY 10/21/24 History mcg-vit K1 60 mcg-herbal no.352 tablet (Alive Women's Multivitamin) potassium chloride 20 mEq 20 meq PO BID 10/21/24 10/21/24 History tablet,extended release Patient hx anesthesia problems: none Family hx anesthesia problems: none Results Review: All pre-operative results and documents have been reviewed as part of the pre-operative evaluation. 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 Living arrangements: with family Spiritual care concerns: No Anes - Eval Final PreProcedure Day of Procedure 10/29/24 10:46 Patient weight: overweight Lungs: normal air movement Airway: Mallampati scale class II Neurological: alert and oriented Last oral intake: >/= 8 hours ASA classification: II Emergent: no Anesthetic plan: proceed Anesthesia type and monitoring: general GIVS and standard monitoring Results Review: All pre-operative results and documents have been reviewed as part of the pre-operative evaluation. HTN, RA, with limitations but can walk despite back/joint pain, no cp or sob. Informed Consent: The patient's anesthetic plan and its attendant risks and benefits were discussed with the patient/family/POA. Questions were solicited and answers provided to the satisfaction of the patient/family/POA.
[2024-10-29] MEDS: SCOPOLAMINE 1 MG PATCH 1 PATCH TRANSDERM (10:54)
[2024-10-29] MEDS: ceFAZolin 2 GM in SODIUM CHLORIDE 0.9% IV 50 ML 100 ML IVPB (12:06)
[2024-10-29] MEDS: BUPivacaine HCL 0.5% 10 ML AMP 5 ML INFILTRATE (12:14)
[2024-10-29] MEDS: LIDO 1%/EPINEPHRINE 1:100,000 20 ML VIAL 5 ML INFILTRATE (12:15)
--- NOTE | 2024-10-29 12:22 | S_PTH ---
PATIENT: Xiomara Rojas LOC: [facility] U#:[id number] AGE/SX: 54/F ROOM: RE10/29/[address]: Dominic Oneill MD : 1970 BED: DIS: 10/29/2024 SPEC #: [id number] RECD: 10/29/24 13:18 STATUS: NIA REQ #: [id number] APRIL: 10/29/24 12:[address]: Dominic Oneill DEPT: [facility] Surgical RECD BY: Meche Wild ENTERED: 10/29/24 13:18 SP TYPE: Surgical OTHR DR: Merly OroMD Tissues: A - Cyst Procedures: Hematoxylin and Eosin Stain Gross and Microscopic Level 4
[2024-10-29 12:39] VITALS: BP 122/63; PULSE 69; RESP 18; O2SAT 100
[2024-10-29 13:09] VITALS: BP 139/66; PULSE 67; O2SAT 100
[2024-10-29 13:39] VITALS: BP 139/69; PULSE 72
== END 2024-10-29 13:42 | disposition home or self-care (01) ==
PROVIDERS: PCP Family Medicine; Visit Provider Plastic Surgery
PROC: (CPT 25111; principal; 2024-10-29 11:45)
DX: M67.431 Ganglion, right wrist (principal); M19.031 Primary osteoarthritis, right wrist; I10 Essential (primary) hypertension; M06.9 Rheumatoid arthritis, unspecified; F12.90 Cannabis use, unspecified, uncomplicated
CPT/HCPCS: 25111; 88305; J0690; A9270; J2004; J2704; J3010; J7120